=== PATIENT | male | born 1940 | race Caucasian/White ===

== ENCOUNTER 2016-08-22 13:18 | Inpatient (IN) | payer MEDICARE, OTHER ==
[2016-08-22] MEDS ORDERED: Albuterol/Ipratropium 3.0-0.5 MG/3 ML Neb Soln INH ONE (13:40)
[2016-08-22 14:13] LABS: CHLORIDE,CL 102 mEq/L (98-106); SODIUM,NA 140 mEq/L (136-145)
[2016-08-22] MEDS ORDERED: Temazepam 15 MG Cap PO PRN (14:21)
[2016-08-22] MEDS ORDERED: Acetaminophen 325 MG Tab PO PRN (14:21)
[2016-08-22] MEDS ORDERED: Lactated Ringers 1,000 ML IV SCH (14:30)
[2016-08-22] MEDS ORDERED: Levofloxacin/Dextrose 5%-Water 500 MG in Premix Bag 1 BAG IV ONE (14:30)
[2016-08-22] MEDS: Albuterol/Ipratropium 3.0-0.5 MG/3 ML Neb Soln NEB SCH ×2 (15:57→20:26)
[2016-08-22] MEDS: Furosemide 20 MG Tab PO SCH (15:57)
[2016-08-22] MEDS: metFORMIN 500 MG Tab PO SCH (17:34)
[2016-08-22] MEDS: Doxazosin 2 MG Tab PO SCH (20:14)
[2016-08-22] MEDS: Simvastatin 20 MG Tab PO SCH (20:14)
[2016-08-22] MEDS: [UNRECOGNIZED DRUG - OTHER] PO SCH (20:16)
[2016-08-22] MEDS: DABIGATRAN PO SCH (20:16)
[2016-08-23 07:46] LABS: CHLORIDE,CL 103 mEq/L (98-106); SODIUM,NA 142 mEq/L (136-145)
[2016-08-23] MEDS: Furosemide 20 MG Tab PO SCH ×2 (08:12→16:42)
[2016-08-23] MEDS: Enalapril 5 MG Tab PO SCH (08:12)
[2016-08-23] MEDS: metFORMIN 500 MG Tab PO SCH ×2 (08:12→16:42)
[2016-08-23] MEDS: Albuterol/Ipratropium 3.0-0.5 MG/3 ML Neb Soln NEB SCH ×4 (08:13→21:16)
[2016-08-23] MEDS: DABIGATRAN PO SCH ×2 (08:13→21:10)
[2016-08-23] MEDS: [UNRECOGNIZED DRUG - OTHER] PO SCH ×2 (08:13→21:10)
[2016-08-23] MEDS: methylPREDNISolone Sodium Succinate 125 MG/2 ML SDV IVPUSH SCH ×2 (11:10→21:12)
[2016-08-23] MEDS: Levofloxacin/Dextrose 5%-Water 500 MG in Premix Bag 1 BAG IV SCH (16:40)
[2016-08-23] MEDS: Cholecalciferol (Vitamin D3) 1,000 Unit Tab PO SCH (16:42)
[2016-08-23] MEDS: ACIDOPHILUS PO SCH (16:42)
[2016-08-23] MEDS: Doxazosin 2 MG Tab PO SCH (21:09)
[2016-08-23] MEDS: Simvastatin 20 MG Tab PO SCH (21:10)
--- NOTE | 2016-08-24 07:00 | PN ---
DATE: 08/23/2016 S: Mr. Wilder was admitted by Joe yesterday for COPD exacerbation and pneumonia, chest x-ray confirmed, white count was elevated. He has been running some fevers. Sputum and blood cultures are pending. His influenza screens were negative. The patient states that he feels better and feels like he is moving air with improvement and is not coughing as much. O: GENERAL: He is a pleasant, alert, and cooperative. HEENT: Benign. NECK: Veins are flat. LUNGS: Sounds are with inspiratory and expiratory wheezes, but overall pretty adequate air movement. There is some left lower lobe rhonchi and fine rales. CARDIAC: Tones are regular. ABDOMEN: Soft and nontender. No peripheral edema is seen. ASSESSMENT: PNEUMONIA WITH CHRONIC OBSTRUCTIVE PULMONARY DISEASE EXACERBATION. P: I am going to add some steroids to his regimen 62.5 Solu-Medrol twice a day, stop his IV fluids. Get him up and ambulating today and we will see how he does. JOE/PABLO /[id number]
[2016-08-24 07:43] LABS: CHLORIDE,CL 104 mEq/L (98-106); SODIUM,NA 141 mEq/L (136-145)
[2016-08-24] MEDS: Enalapril 5 MG Tab PO SCH (08:35)
[2016-08-24] MEDS: Cholecalciferol (Vitamin D3) 1,000 Unit Tab PO SCH (08:35)
[2016-08-24] MEDS: methylPREDNISolone Sodium Succinate 125 MG/2 ML SDV IVPUSH SCH ×2 (08:35→20:00)
[2016-08-24] MEDS: Furosemide 20 MG Tab PO SCH ×2 (08:35→17:15)
[2016-08-24] MEDS: metFORMIN 500 MG Tab PO SCH ×2 (08:35→17:15)
[2016-08-24] MEDS: DABIGATRAN PO SCH ×2 (08:36→20:04)
[2016-08-24] MEDS: [UNRECOGNIZED DRUG - OTHER] PO SCH ×2 (08:36→20:04)
[2016-08-24] MEDS: ACIDOPHILUS PO SCH (08:37)
[2016-08-24] MEDS: Albuterol/Ipratropium 3.0-0.5 MG/3 ML Neb Soln NEB SCH ×4 (10:16→20:12)
--- NOTE | 2016-08-24 10:42 | PN ---
DATE: 08/24/2016 S: The patient is doing well, has not spiked any temperatures. His blood pressure is controlled. We are going to try to wean him off his O2. Yesterday, we could not. Still coughs, but better. His lab work shows improvement in his white count and CRP. O: GENERAL: He is in his usual state. Pleasant and cooperative. HEENT: Grossly benign. NECK: Veins are flat. LUNGS: Sounds are markedly improved. Less rales in the left base, and wheezing is much better today than yesterday. ABDOMEN: Soft with good bowel sounds. No edema is seen. ASSESSMENT: PNEUMONIA. P: We will continue all current cares. Try to wean him off O2 today. I was hoping to get him home today, but I think it will be tomorrow. JOE/PABLO /[id number]
[2016-08-24] MEDS: Levofloxacin/Dextrose 5%-Water 500 MG in Premix Bag 1 BAG IV SCH (17:16)
[2016-08-24] MEDS: Doxazosin 2 MG Tab PO SCH (19:59)
[2016-08-24] MEDS: Simvastatin 20 MG Tab PO SCH (20:00)
[2016-08-25 08:04] LABS: CHLORIDE,CL 104 mEq/L (98-106); SODIUM,NA 139 mEq/L (136-145)
[2016-08-25 08:21] VITALS: BP 137/72
[2016-08-25] MEDS: methylPREDNISolone Sodium Succinate 125 MG/2 ML SDV IVPUSH SCH (08:34)
[2016-08-25] MEDS: [UNRECOGNIZED DRUG - OTHER] PO SCH (08:38)
[2016-08-25] MEDS: metFORMIN 500 MG Tab PO SCH (08:38)
[2016-08-25] MEDS: DABIGATRAN PO SCH (08:38)
[2016-08-25] MEDS: ACIDOPHILUS PO SCH (08:39)
[2016-08-25] MEDS: Enalapril 5 MG Tab PO SCH (08:39)
[2016-08-25] MEDS: Cholecalciferol (Vitamin D3) 1,000 Unit Tab PO SCH (08:39)
[2016-08-25] MEDS: Furosemide 20 MG Tab PO SCH (08:39)
[2016-08-25] MEDS: Albuterol/Ipratropium 3.0-0.5 MG/3 ML Neb Soln NEB SCH (08:40)
--- NOTE | 2016-08-28 07:21 | DISCH ---
ADMISSION DIAGNOSIS: Bronchopneumonia. DISCHARGE DIAGNOSIS: BRONCHOPNEUMONIA. HISTORY: The patient is a 76-year-old male, cared for by Joe Darrick. He was seen in our clinic for the cough, shortness of breath, and fevers. Chest x-ray appeared to show pneumonic infiltrate. He had an elevated white count to 18,000 with a CRP of 7. He was admitted for appropriate cares. HOSPITAL COURSE: The patient was started on IV Levaquin, DuoNeb, and treated appropriately over the course of his 3-day stay. His white count has come down. His CRP is down to 2.6. He has not spiked any temps. He was initially on 2 L of O2. He has been weaned off and is saturating in the mid 90s on room air. He is not having any pulmonary complications and has been up ambulating without any difficulty. He did have a positive sputum culture of Strep pneumonia sensitive to his Levaquin. He will be sent home on 7 more days of Levaquin and to follow up in the clinic in the next 2 weeks. COMPLICATIONS: During the stay were none. CONSULTATIONS: RT. DISPOSITION: Discharged home. JOE/PABLO /[id number]
== END 2016-08-25 10:05 | disposition home or self-care (01) | DRG 190 ==
LOC: CC.MS 13:18 → CC.FCMC 13:18 → UNDOADMIN 14:00 → CC.MS 14:00
PROVIDERS: ADMIT Physician Assistant Medical; ATTEND Family Medicine
DX: J44.0 Chronic obstructive pulmonary disease with (acute) lower respiratory infection (principal); J18.9 Pneumonia, unspecified organism; J44.1 Chronic obstructive pulmonary disease with (acute) exacerbation; R05 Cough; R06.02 Shortness of breath; Z96.659 Presence of unspecified artificial knee joint; Z96.649 Presence of unspecified artificial hip joint; Z79.899 Other long term (current) drug therapy; F17.200 Nicotine dependence, unspecified, uncomplicated; R50.9 Fever, unspecified
CPT/HCPCS: 36415; 71020; 80048; 80053; 85025; 86140; 87040; 87070; 87088; 87184; 87205; 87804; 94640; 94640-76; 94760; A9270-GY; J1956; J2930; J7120

== ENCOUNTER 2017-10-09 10:49 | Inpatient (IN) | payer MEDICARE, OTHER ==
[2017-10-09] MEDS ORDERED: Acetaminophen 325 MG Tab PO PRN (11:08)
[2017-10-09] MEDS ORDERED: Albuterol 0.083% 2.5 MG/3 ML Neb Soln NEB PRN (11:08)
[2017-10-09] MEDS ORDERED: Ondansetron 4 MG Tab.DIS PO PRN (11:08)
[2017-10-09 11:27] LABS: CHLORIDE,CL 103 mEq/L (98-106); SODIUM,NA 141 mEq/L (136-145)
[2017-10-09] MEDS ORDERED: Sodium Chloride 0.9% 1,000 ML IV SCH (11:30)
[2017-10-09] MEDS: cefTRIAXone 1 GM Vial IVPUSH SCH (11:38)
[2017-10-09] MEDS: Azithromycin 500 MG in Sodium Chloride 0.9% 250 ML IV SCH (11:39)
[2017-10-09] MEDS: Albuterol/Ipratropium 3.0-0.5 MG/3 ML Neb Soln NEB SCH ×2 (17:15→20:37)
[2017-10-10] MEDS: Albuterol/Ipratropium 3.0-0.5 MG/3 ML Neb Soln NEB SCH ×4 (07:38→20:10)
[2017-10-10] MEDS ORDERED: Ipratropium 0.02% 0.5 MG/2.5 ML Neb Soln INH PRN (08:22)
[2017-10-10] MEDS ORDERED: Enoxaparin 40 MG/0.4 ML Syringe SUBCUT SCH (08:30)
--- NOTE | 2017-10-10 08:48 | PCM.PN ---
- General Info Date of Service: 10/10/17 Admission Dx/Problem (Free Text): Pneumonia Functional Status: Reports: Tolerating Diet - Review of Systems General: Reports: Weakness, Fatigue, Malaise. Denies: Fever HEENT: Reports: No Symptoms Pulmonary: Reports: Cough, Sputum. Denies: Shortness of Breath Cardiovascular: Denies: Chest Pain, Edema, Lightheadedness Gastrointestinal: Denies: Abdominal Pain, Constipation, Decreased Appetite, Diarrhea, Nausea, Vomiting Genitourinary: Reports: No Symptoms Musculoskeletal: Reports: No Symptoms Skin: Reports: No Symptoms Neurological: Reports: No Symptoms - Patient Data Vitals - Most Recent: Last Vital Signs Temp 98.4 F 10/10/17 04:00 Pulse 55 L 10/10/17 04:00 Resp 20 10/10/17 04:00 BP 128/53 L 10/10/17 04:00 Pulse Ox 94 L 10/10/17 04:00 Weight - Most Recent: 298 lb 1.6 oz Lab Results Last 24 Hours: Laboratory Results - last 24 hr 10/09/17 10/09/17 10/09/17 Range/Units 10:53 10:53 11:08 WBC 14.6 H (5.0-10.0) 10^3/uL RBC 3.93 L (4.50-6.00) 10^6/uL Hgb 12.3 L (14.0-18.0) g/dL Hct 37.9 L (40.0-54.0) % MCV 96.4 H (82.0-94.0) fL MCH 31.3 (27.0-32.0) pg MCHC 32.5 L (33.0-38.0) g/dL RDW Coeff of Laurie 13.9 (11.0-15.0) % Plt Count 196 (150-400) 10^3/uL Neut % (Auto) 83.4 (35-85) % Lymph % (Auto) 6.6 L (10-55) % Kin[place] % (Auto) 9.3 (0-16) % Eos % (Auto) 0.5 (0-5) % Baso % (Auto) 0.2 (0-3) % Neut # (Auto) 12.15 H (1.80-7.00) 10^3/uL Lymph # (Auto) 0.96 L (1.00-4.80) 10^3/uL Kinney # (Auto) 1.36 H (0.00-0.80) 10^3/uL Eos # (Auto) 0.08 (0.00-0.45) 10^3/uL Baso # (Auto) 0.03 10^3/uL Sodium 141 (136-145) mEq/L Potassium 3.8 (3.5-5.0) mEq/L Chloride 103 (98-106) mEq/L Carbon Dioxide 29 (21-32) mmol/L BUN 12 (7-18) mg/dL Creatinine 0.8 (0.7-1.3) mg/dL Est Cr Clr Drug Dosing 87.05 mL/min Estimated GFR (MDRD) > 60 (>=60) mL/min Glucose 146 H (75-99) mg/dL POC Glucose (75-105) mg/dl Calcium 8.7 (8.4-10.1) mg/dL Total Bilirubin 0.9 (0.0-1.0) mg/dL AST 16 (15-37) U/L ALT 21 (12-78) U/L Alkaline Phosphatase 107 (46-116) U/L C-Reactive Protein 10.4 H (0.2-0.8) mg/dL Total Protein 6.8 (6.4-8.2) g/dL Albumin 3.0 L (3.4-5.0) g/dL Urine Color Dark yellow (YELLOW) Urine Appearance Clear (CLEAR) Urine pH 6.0 (4.5-8.0) Ur Specific [place] 1.020 (1.003-1.020) Urine Protein 100 H (NEGATIVE) mg/dL Urine Glucose (UA) 100 H (NEGATIVE) mg/dL Urine Ketones Negative (NEGATIVE) mg/dL Urine Occult Blood Negative (NEGATIVE) Urine Nitrite Negative (NEGATIVE) Urine Bilirubin Negative (NEGATIVE) Urine Urobilinogen >=8.0 H (0.2-1.0) EU/dL Ur Leukocyte Esterase Trace H (NEGATIVE) Urine RBC Not seen (0-5) /HPF Urine WBC 0-5 (0-5) /HPF Ur Squamous Epith Cells Few H (NOT SEEN) /HPF Urine Bacteria Few H (NOT SEEN) /HPF Urine Mucus Few H (NOT SEEN) /HPF 05/30/18 Range/Units 08:07 WBC (5.0-10.0) 10^3/uL RBC (4.50-6.00) 10^6/uL Hgb (14.0-18.0) g/dL Hct (40.0-54.0) % MCV (82.0-94.0) fL MCH (27.0-32.0) pg MCHC (33.0-38.0) g/dL RDW Coeff of Laurie (11.0-15.0) % Plt Count (150-400) 10^3/uL Neut % (Auto) (35-85) % Lymph % (Auto) (10-55) % [place] % (Auto) (0-16) % Eos % (Auto) (0-5) % Baso % (Auto) (0-3) % Neut # (Auto) (1.80-7.00) 10^3/uL Lymph # (Auto) (1.00-4.80) 10^3/uL Kinney # (Auto) (0.00-0.80) 10^3/uL Eos # (Auto) (0.00-0.45) 10^3/uL Baso # (Auto) 10^3/uL Sodium (136-145) mEq/L Potassium (3.5-5.0) mEq/L Chloride (98-106) mEq/L Carbon Dioxide (21-32) mmol/L BUN (7-18) mg/dL Creatinine (0.7-1.3) mg/dL Est Cr Clr Drug Dosing mL/min Estimated GFR (MDRD) (>=60) mL/min Glucose (75-99) mg/dL POC Glucose 149 H (75-105) mg/dl Calcium (8.4-10.1) mg/dL Total Bilirubin (0.0-1.0) mg/dL AST (15-37) U/L ALT (12-78) U/L Alkaline Phosphatase (46-116) U/L C-Reactive Protein (0.2-0.8) mg/dL Total Protein (6.4-8.2) g/dL Albumin (3.4-5.0) g/dL Urine Color (YELLOW) Urine Appearance (CLEAR) Urine pH (4.5-8.0) Ur Specific [place] (1.003-1.020) Urine Protein (NEGATIVE) mg/dL Urine Glucose (UA) (NEGATIVE) mg/dL Urine Ketones (NEGATIVE) mg/dL Urine Occult Blood (NEGATIVE) Urine Nitrite (NEGATIVE) Urine Bilirubin (NEGATIVE) Urine Urobilinogen (0.2-1.0) EU/dL Ur Leukocyte Esterase (NEGATIVE) Urine RBC (0-5) /HPF Urine WBC (0-5) /HPF Ur Squamous Epith Cells (NOT SEEN) /HPF Urine Bacteria (NOT SEEN) /HPF Urine Mucus (NOT SEEN) /HPF Presley Results Last 24 Hours: Microbiology 10/09/17 13:20 Influenza Type A Antigen Screen - Final Nasopharyngeal Swab NEGATIVE INFLUENZA A VIRUS AG Influenza Type B Antigen Screen - Final NEGATIVE INFLUENZA B VIRUS AG 10/09/17 11:08 Gram Stain - Final Sputum - Expectorated Med Orders - Current: Current Medications Acetaminophen (Tylenol) 650 mg PO Q4H PRN PRN Reason: Pain (Mild 1-3)/fever Last Admin: 10/09/17 14:21 Dose: 650 mg Albuterol (Proventil Neb Soln) 2.5 mg NEB Q2H PRN PRN Reason: Shortness Of Breath/wheezing Last Admin: 10/09/17 12:38 Dose: 2.5 mg Albuterol/Ipratropium (Duoneb 3.0-0.5 Mg/3 Ml) 3 ml NEB 0800,1200,1600,2000 [facility] Last Admin: 10/10/17 07:38 Dose: 3 ml Ceftriaxone Sodium (Rocephin) 1 gm IVPUSH DAILY@1200 [facility] Last Admin: 10/09/17 11:38 Dose: 1 gm Doxazosin Mesylate (Cardura) 2 mg PO BEDTIME [facility] Furosemide (Lasix) 20 mg PO BID [facility] Azithromycin 500 mg/ Sodium (Chloride) 250 mls @ 250 mls/hr IV DAILY@1200 [facility] Last Admin: 10/09/17 11:39 Dose: 250 mls/hr Non-Formulary Medication (Cholecalciferol (Vitamin D3)) 5,000 unit PO DAILY [facility] Non-Formulary Medication (Dabigatran Etexilate Mesylate) 150 mg PO BID [facility] Non-Formulary Medication (Enalapril Maleate [Enalapril Maleate]) 10 mg PO DAILY [facility] Non-Formulary Medication (Fluticasone Propionate [Fluticasone Propionate]) 2 spray NS DAILY PRN PRN Reason: Allergies Non-Formulary Medication (Ipratropium Hickman [Ipratropium Hickman]) 2 spray NS BID PRN PRN Reason: Allergies Non-Formulary Medication (Metformin Hcl [Metformin Hcl]) 500 mg PO BID [facility] Non-Formulary Medication (Pravastatin Sodium [Pravastatin Sodium]) 10 mg PO DAILY [facility] Ondansetron HCl (Zofran Odt) 8 mg PO Q6H PRN PRN Reason: nausea, able to take PO Temazepam (Restoril) 15 mg PO BEDTIME PRN PRN Reason: Sleep Discontinued Medications Enoxaparin Sodium (Lovenox) 40 mg SUBCUT Q24H [facility] Sodium Chloride (Normal Saline) 1,000 mls @ 50 mls/hr IV ASDIRECTED [facility] Last Admin: 10/09/17 11:41 Dose: 50 mls/hr - Exam General: Alert, Oriented HEENT: Mucous Membr. Moist/[place] Neck: Supple Lungs: Decreased Breath Sounds, Crackles (LLL) Cardiovascular: Irregular Rhythm GI/Abdominal Exam: Normal Bowel Sounds, Soft, Non-Tender Extremities: Normal Inspection, Normal Range of Motion, No Pedal Edema Skin: Warm, Dry Neurological: No New Focal Deficit - Problem List & Annotations (1) Pneumonia SNOMED Code(s): 732651344 Code(s): J18.9 - PNEUMONIA, UNSPECIFIED ORGANISM Status: Acute Priority: High Current Visit: Yes Qualifiers: Pneumonia type: due to unspecified organism Laterality: left Lung location: lower lobe of lung Qualified Code(s): J18.1 - Lobar pneumonia, unspecified organism - Problem List Review Problem List Initiated/Reviewed/Updated: Yes - My Orders Last 24 Hours: My Active Orders 10/10/17 08:22 Fluticasone Propionate [Fluticasone Propionate] 2 spray NS DAILY PRN Ipratropium Hickman [Ipratropium Hickman] 2 spray NS BID PRN 10/10/17 08:30 Cholecalciferol (Vitamin D3) 5,000 unit PO DAILY Dabigatran Etexilate Mesylate 150 mg PO BID Enalapril Maleate [Enalapril Maleate] 10 mg PO DAILY Furosemide [Lasix] 20 mg PO BID Pravastatin Sodium [Pravastatin Sodium] 10 mg PO DAILY metFORMIN HCl [Metformin HCl] 500 mg PO BID 10/10/17 20:00 Doxazosin [Cardura] 2 mg PO BEDTIME 10/11/17 05:11 BASIC METABOLIC PANEL,BMP [CHEM] AM C-REACTIVE PROTEIN [CHEM] AM CBC WITH AUTO DIFF [HEME] AM - Assessment Assessment:: LLL Pneumonia - Plan Plan:: Patient continues to have fatigue and malaise. Denies shortness of breath. Continues to have cough, minimal sputum production. Afebrile. No wheezing. Negative influenza. Labs show a WBC of 14.7 and CRP of 10.4 on admit. Will hold IV fluids. Encourage ambulation. Continue other cares including IV Levaquin. Possible discharge home tomorrow
[2017-10-10] MEDS ORDERED: Fluticasone Propionate Nasal Spray 16 GM Bottle NAS PRN (09:00)
[2017-10-10] MEDS: Cholecalciferol (Vitamin D3) 1,000 Unit Tab PO SCH (09:01)
[2017-10-10] MEDS: metFORMIN 500 MG Tab PO SCH ×2 (09:01→20:09)
[2017-10-10] MEDS: Simvastatin 10 MG Tab PO SCH (09:01)
[2017-10-10] MEDS: Furosemide 20 MG Tab PO SCH ×2 (09:01→16:50)
[2017-10-10] MEDS: Enalapril 5 MG Tab PO SCH (09:04)
[2017-10-10] MEDS: cefTRIAXone 1 GM Vial IVPUSH SCH (11:39)
[2017-10-10] MEDS: Azithromycin 500 MG in Sodium Chloride 0.9% 250 ML IV SCH (11:41)
[2017-10-10] MEDS: Doxazosin 2 MG Tab PO SCH (20:08)
[2017-10-10] MEDS: Apixaban 5 MG Tab PO SCH (20:09)
[2017-10-11 07:16] LABS: CHLORIDE,CL 102 mEq/L (98-106); SODIUM,NA 139 mEq/L (136-145)
[2017-10-11] MEDS: Enalapril 5 MG Tab PO SCH (07:23)
[2017-10-11] MEDS: metFORMIN 500 MG Tab PO SCH ×2 (07:23→19:46)
[2017-10-11] MEDS: Cholecalciferol (Vitamin D3) 1,000 Unit Tab PO SCH (07:23)
[2017-10-11] MEDS: Apixaban 5 MG Tab PO SCH ×2 (07:23→19:46)
[2017-10-11] MEDS: Simvastatin 10 MG Tab PO SCH (07:23)
[2017-10-11] MEDS: Furosemide 20 MG Tab PO SCH ×2 (07:23→16:11)
[2017-10-11] MEDS: Albuterol/Ipratropium 3.0-0.5 MG/3 ML Neb Soln NEB SCH ×4 (07:24→19:49)
[2017-10-11] MEDS: Fluconazole 100 MG Tab PO SCH (11:43)
[2017-10-11] MEDS: cefTRIAXone 1 GM Vial IVPUSH SCH (11:43)
[2017-10-11] MEDS: Azithromycin 500 MG in Sodium Chloride 0.9% 250 ML IV SCH (11:43)
--- NOTE | 2017-10-11 16:12 | PCM.PN ---
- General Info Date of Service: 10/11/17 Admission Dx/Problem (Free Text): Pneumonia Functional Status: Reports: Pain Controlled, Tolerating Diet, Ambulating - Review of Systems General: Reports: Weakness. Denies: Fever, Fatigue, Malaise HEENT: Reports: Ear Pain. Denies: Sinus Congestion, Sore Throat, Rhinitis Pulmonary: Reports: Cough, Sputum. Denies: Shortness of Breath Cardiovascular: Denies: Chest Pain, Edema, Lightheadedness Gastrointestinal: Denies: Abdominal Pain, Nausea, Vomiting Skin: Reports: No Symptoms Neurological: Reports: No Symptoms - Patient Data Vitals - Most Recent: Last Vital Signs Temp 97.7 F 10/11/17 12:00 Pulse 55 L 10/11/17 12:00 Resp 19 10/11/17 12:00 BP 143/58 H 10/11/17 12:00 Pulse Ox 93 L 10/11/17 12:00 Weight - Most Recent: 298 lb 1.6 oz Lab Results Last 24 Hours: Laboratory Results - last 24 hr 10/10/17 10/10/17 10/11/17 Range/Units 17:35 20:21 06:56 WBC 11.1 H (5.0-10.0) 10^3/uL RBC 3.67 L (4.50-6.00) 10^6/uL Hgb 11.4 L (14.0-18.0) g/dL Hct 35.8 L (40.0-54.0) % MCV 97.5 H (82.0-94.0) fL MCH 31.1 (27.0-32.0) pg MCHC 31.8 L (33.0-38.0) g/dL RDW Coeff of Laurie 13.7 (11.0-15.0) % Plt Count 168 (150-400) 10^3/uL Neut % (Auto) 82.8 (35-85) % Lymph % (Auto) 7.4 L (10-55) % [place] % (Auto) 8.2 (0-16) % Eos % (Auto) 1.4 (0-5) % Baso % (Auto) 0.2 (0-3) % Neut # (Auto) 9.16 H (1.80-7.00) 10^3/uL Lymph # (Auto) 0.82 L (1.00-4.80) 10^3/uL [place] # (Auto) 0.91 H (0.00-0.80) 10^3/uL Eos # (Auto) 0.15 (0.00-0.45) 10^3/uL Baso # (Auto) 0.02 10^3/uL Sodium (136-145) mEq/L Potassium (3.5-5.0) mEq/L Chloride (98-106) mEq/L Carbon Dioxide (21-32) mmol/L BUN (7-18) mg/dL Creatinine (0.7-1.3) mg/dL Est Cr Clr Drug Dosing mL/min Estimated GFR (MDRD) (>=60) mL/min Glucose (75-99) mg/dL POC Glucose 118 H 143 H (75-105) mg/dl Calcium (8.4-10.1) mg/dL C-Reactive Protein (0.2-0.8) mg/dL 10/11/17 10/11/17 Range/Units 06:56 07:39 WBC (5.0-10.0) 10^3/uL RBC (4.50-6.00) 10^6/uL Hgb (14.0-18.0) g/dL Hct (40.0-54.0) % MCV (82.0-94.0) fL MCH (27.0-32.0) pg MCHC (33.0-38.0) g/dL RDW Coeff of Laurie (11.0-15.0) % Plt Count (150-400) 10^3/uL Neut % (Auto) (35-85) % Lymph % (Auto) (10-55) % [place] % (Auto) (0-16) % Eos % (Auto) (0-5) % Baso % (Auto) (0-3) % Neut # (Auto) (1.80-7.00) 10^3/uL Lymph # (Auto) (1.00-4.80) 10^3/uL [place] # (Auto) (0.00-0.80) 10^3/uL Eos # (Auto) (0.00-0.45) 10^3/uL Baso # (Auto) 10^3/uL Sodium 139 (136-145) mEq/L Potassium 3.6 (3.5-5.0) mEq/L Chloride 102 (98-106) mEq/L Carbon Dioxide 27 (21-32) mmol/L BUN 11 (7-18) mg/dL Creatinine 0.7 (0.7-1.3) mg/dL Est Cr Clr Drug Dosing 99.49 mL/min Estimated GFR (MDRD) > 60 (>=60) mL/min Glucose 152 H (75-99) mg/dL POC Glucose 137 H (75-105) mg/dl Calcium 8.7 (8.4-10.1) mg/dL C-Reactive Protein 8.4 H (0.2-0.8) mg/dL Presley Results Last 24 Hours: Microbiology 10/09/17 10:57 Aerobic Blood Culture - Preliminary Blood - Venous - Lab Draw NO GROWTH AFTER 2 DAYS Anaerobic Blood Culture - Preliminary NO GROWTH AFTER 2 DAYS 10/09/17 10:53 Aerobic Blood Culture - Preliminary Blood - Venous NO GROWTH AFTER 2 DAYS Anaerobic Blood Culture - Preliminary NO GROWTH AFTER 2 DAYS 10/09/17 11:08 Gram Stain - Final Sputum - Expectorated Sputum Culture - Final Yeast Isolated Med Orders - Current: Current Medications Acetaminophen (Tylenol) 650 mg PO Q4H PRN PRN Reason: Pain (Mild 1-3)/fever Last Admin: 10/09/17 14:21 Dose: 650 mg Albuterol (Proventil Neb Soln) 2.5 mg NEB Q2H PRN PRN Reason: Shortness Of Breath/wheezing Last Admin: 10/09/17 12:38 Dose: 2.5 mg Albuterol/Ipratropium (Duoneb 3.0-0.5 Mg/3 Ml) 3 ml NEB 0800,1200,1600,2000 [facility] Last Admin: 10/11/17 11:43 Dose: 3 ml Apixaban (Eliquis) 5 mg PO BID [facility] Last Admin: 10/11/17 07:23 Dose: 5 mg Ceftriaxone Sodium (Rocephin) 1 gm IVPUSH DAILY@1200 [facility] Last Admin: 10/11/17 11:43 Dose: 1 gm Cholecalciferol (Vitamin D3) 5,000 units PO DAILY [facility] Last Admin: 10/11/17 07:23 Dose: 5,000 units Doxazosin Mesylate (Cardura) 2 mg PO BEDTIME [facility] Last Admin: 10/10/17 20:08 Dose: 2 mg Enalapril Maleate (Vasotec) 10 mg PO DAILY [facility] Last Admin: 10/11/17 07:23 Dose: 10 mg Fluconazole (Diflucan) 100 mg PO DAILY [facility] Last Admin: 10/11/17 11:43 Dose: 100 mg Fluticasone Propionate (Flonase) 0 gm BILL DAILY PRN PRN Reason: Allergies Furosemide (Lasix) 20 mg PO BID@0800,1600 [facility] Last Admin: 10/11/17 07:23 Dose: 20 mg Azithromycin 500 mg/ Sodium (Chloride) 250 mls @ 250 mls/hr IV DAILY@1200 [facility] Last Admin: 10/11/17 11:43 Dose: 250 mls/hr Ipratropium Cummings (Atrovent) 0.5 mg INH BID PRN PRN Reason: Allergies Metformin HCl (Glucophage) 500 mg PO BID [facility] Last Admin: 10/11/17 07:23 Dose: 500 mg Ondansetron HCl (Zofran Odt) 8 mg PO Q6H PRN PRN Reason: nausea, able to take PO Simvastatin (Zocor) 5 mg PO DAILY [facility] Last Admin: 10/11/17 07:23 Dose: 5 mg Temazepam (Restoril) 15 mg PO BEDTIME PRN PRN Reason: Sleep Discontinued Medications Enoxaparin Sodium (Lovenox) 40 mg SUBCUT Q24H [facility] Sodium Chloride (Normal Saline) 1,000 mls @ 50 mls/hr IV ASDIRECTED [facility] Last Admin: 10/09/17 11:41 Dose: 50 mls/hr - Exam General: Alert, Oriented HEENT: Mucous Membr. Moist/[place], Other (ear canals are clear, No erythema noted to TMs) Neck: Supple Lungs: Decreased Breath Sounds, Crackles (LLL) Cardiovascular: Regular Rate, Regular Rhythm GI/Abdominal Exam: Normal Bowel Sounds, Soft, Non-Tender Extremities: Normal Inspection, No Pedal Edema Skin: Warm, Dry Neurological: No New Focal Deficit - Problem List & Annotations (1) Pneumonia SNOMED Code(s): 204938351 Code(s): J18.9 - PNEUMONIA, UNSPECIFIED ORGANISM Status: Acute Priority: High Current Visit: Yes Qualifiers: Pneumonia type: due to unspecified organism Laterality: left Lung location: lower lobe of lung Qualified Code(s): J18.1 - Lobar pneumonia, unspecified organism - Problem List Review Problem List Initiated/Reviewed/Updated: Yes - My Orders Last 24 Hours: My Active Orders 10/10/17 20:00 Apixaban [Eliquis] 5 mg PO BID Doxazosin [Cardura] 2 mg PO BEDTIME 10/11/17 11:15 Fluconazole [Diflucan] 100 mg PO DAILY 10/12/17 05:11 BASIC METABOLIC PANEL,BMP [CHEM] AM C-REACTIVE PROTEIN [CHEM] AM - Assessment Assessment:: LLL Pneumonia - Plan Plan:: Patient continues to have fatigue and malaise. Denies shortness of breath. Continues to have cough, minimal sputum production. Afebrile. No wheezing. Negative influenza. Labs show a WBC of 14.7 and CRP of 10.4 on admit. Will hold IV fluids. Encourage ambulation. Continue other cares including IV Levaquin. Possible discharge home tomorrow 10-11-2017 Patient feeling better today, was able to get some rest last night. Does continue to have occasional cough, minimal sputum production. Afebrile. No wheezing. States does still feel fatigued. Having left ear pain now. Labs show improvement of WBC to 11.1, CRP 8.4. Sputum culture does show yeast. Will continue with current meds. Start Diflucan daily for yeast. Repeat labs in am. Start cough medicine. Possible discharge home tomorrow.
[2017-10-11] MEDS: Doxazosin 2 MG Tab PO SCH (19:46)
[2017-10-12] MEDS: Temazepam 15 MG Cap PO PRN (00:05)
[2017-10-12] MEDS: Fluconazole 100 MG Tab PO SCH (07:33)
[2017-10-12] MEDS: Simvastatin 10 MG Tab PO SCH (07:33)
[2017-10-12] MEDS: Albuterol/Ipratropium 3.0-0.5 MG/3 ML Neb Soln NEB SCH ×4 (07:33→19:53)
[2017-10-12] MEDS: Enalapril 5 MG Tab PO SCH (07:34)
[2017-10-12] MEDS: Cholecalciferol (Vitamin D3) 1,000 Unit Tab PO SCH (07:34)
[2017-10-12] MEDS: metFORMIN 500 MG Tab PO SCH ×2 (07:35→19:53)
[2017-10-12] MEDS: Apixaban 5 MG Tab PO SCH ×2 (07:35→19:53)
[2017-10-12] MEDS: Furosemide 20 MG Tab PO SCH ×2 (07:35→16:47)
[2017-10-12 07:41] LABS: CHLORIDE,CL 104 mEq/L (98-106); SODIUM,NA 141 mEq/L (136-145)
--- NOTE | 2017-10-12 09:13 | PCM.PN ---
- General Info Date of Service: 10/12/17 Admission Dx/Problem (Free Text): Pneumonia Functional Status: Reports: Pain Controlled, Tolerating Diet. Denies: Ambulating - Review of Systems General: Denies: Fever, Weakness, Fatigue, Malaise HEENT: Reports: No Symptoms Pulmonary: Reports: Cough, Sputum. Denies: Shortness of Breath Cardiovascular: Denies: Chest Pain, Edema, Lightheadedness Gastrointestinal: Denies: Abdominal Pain, Nausea, Vomiting Genitourinary: Reports: No Symptoms Musculoskeletal: Reports: No Symptoms Skin: Reports: No Symptoms Neurological: Reports: No Symptoms - Patient Data Vitals - Most Recent: Last Vital Signs Temp 97.7 F 10/12/17 07:31 Pulse 70 10/12/17 07:31 Resp 20 10/12/17 07:31 BP 150/56 H 10/12/17 07:31 Pulse Ox 92 L 10/12/17 07:31 Weight - Most Recent: 298 lb 1.6 oz Lab Results Last 24 Hours: Laboratory Results - last 24 hr 10/11/17 10/11/17 10/11/17 Range/Units 11:53 17:28 20:10 Sodium (136-145) mEq/L Potassium (3.5-5.0) mEq/L Chloride (98-106) mEq/L Carbon Dioxide (21-32) mmol/L BUN (7-18) mg/dL Creatinine (0.7-1.3) mg/dL Est Cr Clr Drug Dosing mL/min Estimated GFR (MDRD) (>=60) mL/min Glucose (75-99) mg/dL POC Glucose 104 125 H 147 H (75-105) mg/dl Calcium (8.4-10.1) mg/dL C-Reactive Protein (0.2-0.8) mg/dL 10/12/17 10/12/17 Range/Units 07:05 07:29 Sodium 141 (136-145) mEq/L Potassium 3.7 (3.5-5.0) mEq/L Chloride 104 (98-106) mEq/L Carbon Dioxide 29 (21-32) mmol/L BUN 8 (7-18) mg/dL Creatinine 0.7 (0.7-1.3) mg/dL Est Cr Clr Drug Dosing 99.49 mL/min Estimated GFR (MDRD) > 60 (>=60) mL/min Glucose 141 H (75-99) mg/dL POC Glucose 131 H (75-105) mg/dl Calcium 9.0 (8.4-10.1) mg/dL C-Reactive Protein 4.8 H (0.2-0.8) mg/dL [facility] Results Last 24 Hours: Microbiology 10/09/17 10:57 Aerobic Blood Culture - Preliminary Blood - Venous - Lab Draw NO GROWTH AFTER 2 DAYS Anaerobic Blood Culture - Preliminary NO GROWTH AFTER 2 DAYS 10/09/17 10:53 Aerobic Blood Culture - Preliminary Blood - Venous NO GROWTH AFTER 2 DAYS Anaerobic Blood Culture - Preliminary NO GROWTH AFTER 2 DAYS 10/09/17 11:08 Gram Stain - Final Sputum - Expectorated Sputum Culture - Final Yeast Isolated Med Orders - Current: Current Medications Acetaminophen (Tylenol) 650 mg PO Q4H PRN PRN Reason: Pain (Mild 1-3)/fever Last Admin: 10/09/17 14:21 Dose: 650 mg Albuterol (Proventil Neb Soln) 2.5 mg NEB Q2H PRN PRN Reason: Shortness Of Breath/wheezing Last Admin: 10/09/17 12:38 Dose: 2.5 mg Albuterol/Ipratropium (Duoneb 3.0-0.5 Mg/3 Ml) 3 ml NEB 0800,1200,1600,2000 [facility] Last Admin: 10/12/17 07:33 Dose: 3 ml Apixaban (Eliquis) 5 mg PO BID [facility] Last Admin: 10/12/17 07:35 Dose: 5 mg Ceftriaxone Sodium (Rocephin) 1 gm IVPUSH DAILY@1200 [facility] Last Admin: 10/11/17 11:43 Dose: 1 gm Cholecalciferol (Vitamin D3) 5,000 units PO DAILY [facility] Last Admin: 10/12/17 07:34 Dose: 5,000 units Doxazosin Mesylate (Cardura) 2 mg PO BEDTIME [facility] Last Admin: 10/11/17 19:46 Dose: 2 mg Enalapril Maleate (Vasotec) 10 mg PO DAILY [facility] Last Admin: 10/12/17 07:34 Dose: 10 mg Fluconazole (Diflucan) 100 mg PO DAILY [facility] Last Admin: 10/12/17 07:33 Dose: 100 mg Fluticasone Propionate (Flonase) 0 gm BILL DAILY PRN PRN Reason: Allergies Furosemide (Lasix) 20 mg PO BID@0800,1600 [facility] Last Admin: 10/12/17 07:35 Dose: 20 mg Azithromycin 500 mg/ Sodium (Chloride) 250 mls @ 250 mls/hr IV DAILY@1200 [facility] Last Admin: 10/11/17 11:43 Dose: 250 mls/hr Ipratropium [place] (Atrovent) 0.5 mg INH BID PRN PRN Reason: Allergies Metformin HCl (Glucophage) 500 mg PO BID [facility] Last Admin: 10/12/17 07:35 Dose: 500 mg Ondansetron HCl (Zofran Odt) 8 mg PO Q6H PRN PRN Reason: nausea, able to take PO Simvastatin (Zocor) 5 mg PO DAILY [facility] Last Admin: 10/12/17 07:33 Dose: 5 mg Temazepam (Restoril) 15 mg PO BEDTIME PRN PRN Reason: Sleep Last Admin: 10/12/17 00:05 Dose: 15 mg Discontinued Medications Enoxaparin Sodium (Lovenox) 40 mg SUBCUT Q24H [facility] Sodium Chloride (Normal Saline) 1,000 mls @ 50 mls/hr IV ASDIRECTED [facility] Last Admin: 10/09/17 11:41 Dose: 50 mls/hr - Exam Quality Assessment: Supplemental Oxygen General: Alert, Oriented HEENT: Mucous Membr. Moist/[place] Neck: Supple Lungs: Crackles (LLL) Cardiovascular: Regular Rate, Regular Rhythm GI/Abdominal Exam: Normal Bowel Sounds, Soft, Non-Tender Extremities: Normal Inspection, No Pedal Edema Skin: Warm, Dry Neurological: No New Focal Deficit - Problem List & Annotations (1) Pneumonia SNOMED Code(s): 008472387 Code(s): J18.9 - PNEUMONIA, UNSPECIFIED ORGANISM Status: Acute Priority: High Current Visit: Yes Qualifiers: Pneumonia type: due to unspecified organism Laterality: left Lung location: lower lobe of lung Qualified Code(s): J18.1 - Lobar pneumonia, unspecified organism - Problem List Review Problem List Initiated/Reviewed/Updated: Yes - My Orders Last 24 Hours: My Active Orders 10/11/17 11:15 Fluconazole [Diflucan] 100 mg PO DAILY - Assessment Assessment:: LLL Pneumonia - Plan Plan:: Patient continues to have fatigue and malaise. Denies shortness of breath. Continues to have cough, minimal sputum production. Afebrile. No wheezing. Negative influenza. Labs show a WBC of 14.7 and CRP of 10.4 on admit. Will hold IV fluids. Encourage ambulation. Continue other cares including IV Levaquin. Possible discharge home tomorrow 10-11-2017 Patient feeling better today, was able to get some rest last night. Does continue to have occasional cough, minimal sputum production. Afebrile. No wheezing. States does still feel fatigued. Having left ear pain now. Labs show improvement of WBC to 11.1, CRP 8.4. Sputum culture does show yeast. Will continue with current meds. Start Diflucan daily for yeast. Repeat labs in am. Start cough medicine. Possible discharge home tomorrow. 10-12-2017 Patient is feeling good today. States cough medicine has helped him to suppress cough and get some sleep. Still oxygen dependent. Did try to wean him yesterday but his sats dropped to 88%. Afebrile. Is tolerating ambulating with minimal shortness of breath. Lung sounds still note He was noted to have yeast in his sputum so Diflucan was added. Labs continue to improve. WBC normal. CRP down to 4.8. Encourage ambulation and attempt to wean off oxygen again today in hopes to discharge home tomorrow without oxygen.
[2017-10-12] MEDS: Azithromycin 500 MG in Sodium Chloride 0.9% 250 ML IV SCH (11:48)
[2017-10-12] MEDS: cefTRIAXone 1 GM Vial IVPUSH SCH (11:48)
[2017-10-12] MEDS: Doxazosin 2 MG Tab PO SCH (19:53)
[2017-10-13] MEDS: Temazepam 15 MG Cap PO PRN ×2 (02:34→23:18)
[2017-10-13] MEDS: Fluconazole 100 MG Tab PO SCH (07:30)
[2017-10-13] MEDS: Furosemide 20 MG Tab PO SCH ×2 (07:30→15:34)
[2017-10-13] MEDS: Enalapril 5 MG Tab PO SCH (07:30)
[2017-10-13] MEDS: Simvastatin 10 MG Tab PO SCH (07:30)
[2017-10-13] MEDS: metFORMIN 500 MG Tab PO SCH ×2 (07:31→19:49)
[2017-10-13] MEDS: Apixaban 5 MG Tab PO SCH ×2 (07:31→19:34)
[2017-10-13] MEDS: Cholecalciferol (Vitamin D3) 1,000 Unit Tab PO SCH (07:32)
[2017-10-13] MEDS: Albuterol/Ipratropium 3.0-0.5 MG/3 ML Neb Soln NEB SCH ×4 (07:38→19:34)
[2017-10-13 08:31] LABS: CHLORIDE,CL 103 mEq/L (98-106); SODIUM,NA 141 mEq/L (136-145)
[2017-10-13] MEDS: cefTRIAXone 1 GM Vial IVPUSH SCH (11:40)
[2017-10-13] MEDS: Azithromycin 500 MG in Sodium Chloride 0.9% 250 ML IV SCH (11:42)
--- NOTE | 2017-10-13 14:45 | PCM.PN ---
- General Info Date of Service: 10/13/17 Admission Dx/Problem (Free Text): Pneumonia Subjective Update: Pt. reports he still has a productive cough and coughing up phlegm occasionally. Denies any SOB and states that he has not been able to lay flat in bed since early . Pt. has smoked for 60 years. Has never been on home oxygen. Is anxious to go home. Functional Status: Reports: Pain Controlled, Tolerating Diet, Ambulating, Urinating, Incentive Spirometry Pain Score: 0 - Review of Systems General: Reports: No Symptoms HEENT: Reports: No Symptoms Pulmonary: Reports: Cough, Sputum Cardiovascular: Reports: Orthopnea Gastrointestinal: Reports: No Symptoms Genitourinary: Reports: No Symptoms Musculoskeletal: Reports: No Symptoms Skin: Reports: No Symptoms Neurological: Reports: No Symptoms Psychiatric: Reports: No Symptoms - Patient Data Vitals - Most Recent: Last Vital Signs Temp 36.5 C 10/13/17 11:50 Pulse 64 10/13/17 11:50 Resp 20 10/13/17 11:50 BP 142/54 H 10/13/17 11:50 Pulse Ox 90 L 10/13/17 11:50 Weight - Most Recent: 135.216 kg Lab Results Last 24 Hours: Laboratory Results - last 24 hr 10/12/17 10/12/17 10/12/17 Range/Units 11:29 17:09 20:51 WBC (5.0-10.0) 10^3/uL RBC (4.50-6.00) 10^6/uL Hgb (14.0-18.0) g/dL Hct (40.0-54.0) % MCV (82.0-94.0) fL MCH (27.0-32.0) pg MCHC (33.0-38.0) g/dL RDW Coeff of Laurie (11.0-15.0) % Plt Count (150-400) 10^3/uL Neut % (Auto) (35-85) % Lymph % (Auto) (10-55) % [place] % (Auto) (0-16) % Eos % (Auto) (0-5) % Baso % (Auto) (0-3) % Neut # (Auto) (1.80-7.00) 10^3/uL Lymph # (Auto) (1.00-4.80) 10^3/uL [place] # (Auto) (0.00-0.80) 10^3/uL Eos # (Auto) (0.00-0.45) 10^3/uL Baso # (Auto) 10^3/uL Sodium (136-145) mEq/L Potassium (3.5-5.0) mEq/L Chloride (98-106) mEq/L Carbon Dioxide (21-32) mmol/L BUN (7-18) mg/dL Creatinine (0.7-1.3) mg/dL Est Cr Clr Drug Dosing mL/min Estimated GFR (MDRD) (>=60) mL/min Glucose (75-99) mg/dL POC Glucose 103 106 H 161 H (75-105) mg/dl Calcium (8.4-10.1) mg/dL 10/13/17 10/13/17 10/13/17 Range/Units 07:17 08:00 08:00 WBC 9.0 (5.0-10.0) 10^3/uL RBC 3.82 L (4.50-6.00) 10^6/uL Hgb 11.9 L (14.0-18.0) g/dL Hct 37.2 L (40.0-54.0) % MCV 97.4 H (82.0-94.0) fL MCH 31.2 (27.0-32.0) pg MCHC 32.0 L (33.0-38.0) g/dL RDW Coeff of Laurie 13.6 (11.0-15.0) % Plt Count 209 (150-400) 10^3/uL Neut % (Auto) 75.4 (35-85) % Lymph % (Auto) 13.6 (10-55) % [place] % (Auto) 8.2 (0-16) % Eos % (Auto) 2.5 (0-5) % Baso % (Auto) 0.3 (0-3) % Neut # (Auto) 6.80 (1.80-7.00) 10^3/uL Lymph # (Auto) 1.23 (1.00-4.80) 10^3/uL [place] # (Auto) 0.74 (0.00-0.80) 10^3/uL Eos # (Auto) 0.23 (0.00-0.45) 10^3/uL Baso # (Auto) 0.03 10^3/uL Sodium 141 (136-145) mEq/L Potassium 3.8 (3.5-5.0) mEq/L Chloride 103 (98-106) mEq/L Carbon Dioxide 33 H (21-32) mmol/L BUN 7 (7-18) mg/dL Creatinine 0.7 (0.7-1.3) mg/dL Est Cr Clr Drug Dosing 99.49 mL/min Estimated GFR (MDRD) > 60 (>=60) mL/min Glucose 135 H (75-99) mg/dL POC Glucose 113 H (75-105) mg/dl Calcium 9.0 (8.4-10.1) mg/dL 10/13/17 Range/Units 11:27 WBC (5.0-10.0) 10^3/uL RBC (4.50-6.00) 10^6/uL Hgb (14.0-18.0) g/dL Hct (40.0-54.0) % MCV (82.0-94.0) fL MCH (27.0-32.0) pg MCHC (33.0-38.0) g/dL RDW Coeff of [place]ie (11.0-15.0) % Plt Count (150-400) 10^3/uL Neut % (Auto) (35-85) % Lymph % (Auto) (10-55) % [place] % (Auto) (0-16) % Eos % (Auto) (0-5) % Baso % (Auto) (0-3) % Neut # (Auto) (1.80-7.00) 10^3/uL Lymph # (Auto) (1.00-4.80) 10^3/uL [place] # (Auto) (0.00-0.80) 10^3/uL Eos # (Auto) (0.00-0.45) 10^3/uL Baso # (Auto) 10^3/uL Sodium (136-145) mEq/L Potassium (3.5-5.0) mEq/L Chloride (98-106) mEq/L Carbon Dioxide (21-32) mmol/L BUN (7-18) mg/dL Creatinine (0.7-1.3) mg/dL Est Cr Clr Drug Dosing mL/min Estimated GFR (MDRD) (>=60) mL/min Glucose (75-99) mg/dL POC Glucose 101 (75-105) mg/dl Calcium (8.4-10.1) mg/dL [place] Results Last 24 Hours: Microbiology 10/09/17 10:57 Aerobic Blood Culture - Preliminary Blood - Venous - Lab Draw NO GROWTH AFTER 4 DAYS Anaerobic Blood Culture - Preliminary NO GROWTH AFTER 4 DAYS 10/09/17 10:53 Aerobic Blood Culture - Preliminary Blood - Venous NO GROWTH AFTER 4 DAYS Anaerobic Blood Culture - Preliminary NO GROWTH AFTER 4 DAYS Med Orders - Current: Current Medications Acetaminophen (Tylenol) 650 mg PO Q4H PRN PRN Reason: Pain (Mild 1-3)/fever Last Admin: 10/09/17 14:21 Dose: 650 mg Albuterol (Proventil Neb Soln) 2.5 mg NEB Q2H PRN PRN Reason: Shortness Of Breath/wheezing Last Admin: 10/09/17 12:38 Dose: 2.5 mg Albuterol/Ipratropium (Duoneb 3.0-0.5 Mg/3 Ml) 3 ml NEB 0800,1200,1600,2000 [facility] Last Admin: 10/13/17 11:39 Dose: 3 ml Apixaban (Eliquis) 5 mg PO BID [facility] Last Admin: 10/13/17 07:31 Dose: 5 mg Cholecalciferol (Vitamin D3) 5,000 units PO DAILY [facility] Last Admin: 10/13/17 07:32 Dose: 5,000 units Doxazosin Mesylate (Cardura) 2 mg PO BEDTIME [facility] Last Admin: 10/12/17 19:53 Dose: 2 mg Enalapril Maleate (Vasotec) 10 mg PO DAILY [facility] Last Admin: 10/13/17 07:30 Dose: 10 mg Fluconazole (Diflucan) 100 mg PO DAILY [facility] Last Admin: 10/13/17 07:30 Dose: 100 mg Fluticasone Propionate (Flonase) 0 gm BILL DAILY PRN PRN Reason: Allergies Furosemide (Lasix) 20 mg PO BID@0800,1600 [facility] Last Admin: 10/13/17 07:30 Dose: 20 mg Ipratropium [place] (Atrovent) 0.5 mg INH BID PRN PRN Reason: Allergies Levofloxacin (Levaquin) 750 mg PO Q24H [facility] Metformin HCl (Glucophage) 500 mg PO BID [facility] Last Admin: 10/13/17 07:31 Dose: 500 mg Ondansetron HCl (Zofran Odt) 8 mg PO Q6H PRN PRN Reason: nausea, able to take PO Simvastatin (Zocor) 5 mg PO DAILY [facility] Last Admin: 10/13/17 07:30 Dose: 5 mg Temazepam (Restoril) 15 mg PO BEDTIME PRN PRN Reason: Sleep Last Admin: 10/13/17 02:34 Dose: 15 mg Discontinued Medications Ceftriaxone Sodium (Rocephin) 1 gm IVPUSH DAILY@1200 [facility] Last Admin: 10/13/17 11:40 Dose: 1 gm Enoxaparin Sodium (Lovenox) 40 mg SUBCUT Q24H [facility] Azithromycin 500 mg/ Sodium (Chloride) 250 mls @ 250 mls/hr IV DAILY@1200 [facility] Last Admin: 10/13/17 11:42 Dose: 250 mls/hr Sodium Chloride (Normal Saline) 1,000 mls @ 50 mls/hr IV ASDIRECTED [facility] Last Admin: 10/09/17 11:41 Dose: 50 mls/hr - Exam Quality Assessment: Supplemental Oxygen General: Alert, Oriented, Cooperative, No Acute Distress HEENT: Pupils Equal, Pupils Reactive, EOMI, Mucous Membr. Moist/[place] Neck: Supple, Trachea Midline, No JVD Lungs: Decreased Breath Sounds, Rhonchi, Wheezing Cardiovascular: Regular Rate, Regular Rhythm GI/Abdominal Exam: Normal Bowel Sounds, Soft, Non-Tender, No Organomegaly, No Distention Extremities: Normal Inspection, Normal Range of Motion, Non-Tender, No Pedal Edema Skin: Warm, Dry, Intact Neurological: No New Focal Deficit, Normal Gait, Normal Speech Psy/Mental Status: Alert, Normal Affect, Normal Mood - Problem List & Annotations (1) COPD exacerbation SNOMED Code(s): 345327785 Code(s): J44.1 - CHRONIC OBSTRUCTIVE PULMONARY DISEASE W (ACUTE) EXACERBATION Status: Acute Priority: Medium Current Visit: Yes (2) Pneumonia SNOMED Code(s): 816277150 Code(s): J18.9 - PNEUMONIA, UNSPECIFIED ORGANISM Status: Acute Priority: High Current Visit: Yes Qualifiers: Pneumonia type: due to unspecified organism Laterality: left Lung location: lower lobe of lung Qualified Code(s): J18.1 - Lobar pneumonia, unspecified organism - Problem List Review Problem List Initiated/Reviewed/Updated: Yes - My Orders Last 24 Hours: My Active Orders 10/13/17 14:45 Levofloxacin [Levaquin] 750 mg PO Q24H methylPREDNISolone Sod Succ [Solu-MEDROL] 125 mg IVPUSH Q24H - Assessment Assessment:: LLL Pneumonia - Plan Plan:: Patient continues to have fatigue and malaise. Denies shortness of breath. Continues to have cough, minimal sputum production. Afebrile. No wheezing. Negative influenza. Labs show a WBC of 14.7 and CRP of 10.4 on admit. Will hold IV fluids. Encourage ambulation. Continue other cares including IV Levaquin. Possible discharge home tomorrow 10-11-2017 Patient feeling better today, was able to get some rest last night. Does continue to have occasional cough, minimal sputum production. Afebrile. No wheezing. States does still feel fatigued. Having left ear pain now. Labs show improvement of WBC to 11.1, CRP 8.4. Sputum culture does show yeast. Will continue with current meds. Start Diflucan daily for yeast. Repeat labs in am. Start cough medicine. Possible discharge home tomorrow. 10-12-2017 Patient is feeling good today. States cough medicine has helped him to suppress cough and get some sleep. Still oxygen dependent. Did try to wean him yesterday but his sats dropped to 88%. Afebrile. Is tolerating ambulating with minimal shortness of breath. Lung sounds still note He was noted to have yeast in his sputum so Diflucan was added. Labs continue to improve. WBC normal. CRP down to 4.8. Encourage ambulation and attempt to wean off oxygen again today in hopes to discharge home tomorrow without oxygen. 10-13-2017 Patient feeling good today. Still with productive cough. Attempting to wean oxygen, however sats drop to 89% while ambulating. Afebrile. Is tolerating ambulation with sats 89%. Lung sounds rhonchi bilat. posterior lower lungs with occassional wheeze. Discontinue Rocephin and Azithromycin and start oral Levaquin 750 mg daily. COPD exacerbation- give Solumedrol 125 mg IV and continue Duonebs q 6 hrs and PRN. Continue to attempt wean oxygen and monitor sats.Will probably need outpatient Pulmonology consult and possible home oxygen.
[2017-10-13] MEDS ORDERED: Levofloxacin 500 MG Tab PO SCH (15:00)
[2017-10-13] MEDS ORDERED: methylPREDNISolone Sodium Succinate 125 MG/2 ML SDV IVPUSH SCH (15:00)
[2017-10-13] MEDS: Doxazosin 2 MG Tab PO SCH (19:34)
[2017-10-14 07:22] VITALS: BP 151/64
[2017-10-14] MEDS: metFORMIN 500 MG Tab PO SCH (07:37)
[2017-10-14] MEDS: Cholecalciferol (Vitamin D3) 1,000 Unit Tab PO SCH (07:37)
[2017-10-14] MEDS: Furosemide 20 MG Tab PO SCH (07:38)
[2017-10-14] MEDS: Fluconazole 100 MG Tab PO SCH (07:38)
[2017-10-14] MEDS: Enalapril 5 MG Tab PO SCH (07:38)
[2017-10-14] MEDS: Albuterol/Ipratropium 3.0-0.5 MG/3 ML Neb Soln NEB SCH (07:39)
[2017-10-14] MEDS: Apixaban 5 MG Tab PO SCH (07:39)
[2017-10-14] MEDS: Simvastatin 10 MG Tab PO SCH (07:39)
[2017-10-14] MEDS ORDERED: Levofloxacin 500 MG Tab PO ONE (08:48)
[2017-10-14] MEDS ORDERED: methylPREDNISolone Sodium Succinate 125 MG/2 ML SDV IVPUSH SCH (09:00)
--- NOTE | 2017-10-14 11:24 | PCM.DCSUM1 ---
Discharge Summary - Hospital Course HPI Initial Comments: 77 year male with past medical history of HTN, COPD, smoker, HL, and DM, initially seen in clinic, then referred for admission due to productive cough, malaise, and elevated WBC count and CXR showed left lower lobe pneumonia. - Discharge Data Discharge Date: 10/14/17 Discharge Disposition: Home, Self-Care 01 Condition: Good - Discharge Diagnosis/Problem(s) (1) COPD exacerbation SNOMED Code(s): 228837661 ICD Code: J44.1 - CHRONIC OBSTRUCTIVE PULMONARY DISEASE W (ACUTE) EXACERBATION Status: Acute Priority: Medium (2) Pneumonia SNOMED Code(s): 888659801 ICD Code: J18.9 - PNEUMONIA, UNSPECIFIED ORGANISM Status: Acute Priority : High Qualifiers: Pneumonia type: due to unspecified organism Laterality: left Lung location: lower lobe of lung Qualified Code(s): J18.1 - Lobar pneumonia, unspecified organism - Patient Summary/Data Consults: Consultations 10/09/17 11:08 Respiratory Care Assess and Treatment [CONS] Routine Hospital Course: 77 year male with past medical history of HTN, DM, HL, smoker, and COPD, referred for admission to hospital after being seen in clinic for productive cough, fatigue, leukocytosis, and left lower lobe pneumonia on CXR. Patient was started on IV Rocephin, Azithromycin, and Duonebs q 6 hrs and PRN. WBC count trended downward and normalized. Patient had occassional diffuse wheezing on 10/13/2017 and was started on IV Solumedrol for COPD exacerbation. Patient did require oxygen during hospitalization and was weaned off gradually, and maintained sats >90%, however continued to drop sats with ambulation to 89% . This was discussed with patient whom states this may have been ongoing for a long time, states that he is unable to lay flat due to increased SOB for years. Sats did improve during hospital course ranging from 92-95% on room air but dropped to 89% during ambulation. Discussed with patient that he will need to be seen by Dr. Pereira on Sunday and discuss home oxygen and Pulmonology consult. - Patient Instructions Diet: Diabetic Diet Activity: As Tolerated Driving: May Drive Today Notify Provider of: Fever - Discharge Plan Prescriptions/Med Rec: Levofloxacin [Levaquin] 750 mg PO DAILY #4 tab predniSONE [Prednisone] 40 mg PO DAILY #5 tablet Home Medications: Home Meds RX: Doxazosin Mesylate [Cardura] 2 mg PO BEDTIME 08/22/16 [History] RX: Enalapril Maleate 10 mg PO DAILY 08/22/16 [History] RX: Furosemide 20 mg PO BID 08/22/16 [History] RX: Lactobacillus Acidophilus [Acidophilus] 1 each PO DAILY 08/23/16 [History] Dabigatran Etexilate Mesylate 150 mg PO BID 08/25/16 [Rx] RX: Fluticasone Propionate 2 spray NS DAILY PRN 10/09/17 [History] RX: Ipratropium Tensed 2 spray NS BID PRN 10/09/17 [History] RX: Pravastatin Sodium 10 mg PO DAILY 10/09/17 [History] Levofloxacin [Levaquin] 750 mg PO DAILY #4 tab 10/14/17 [Rx] RX: Cholecalciferol (Vitamin D3) [Vitamin D3] 5,000 units PO DAILY tablet 10/14 [Rx] RX: metFORMIN [Glucophage] 500 mg PO BID tablet 10/14/17 [Rx] predniSONE [Prednisone] 40 mg PO DAILY #5 tablet 10/14/17 [Rx] Patient Handouts: Community-Acquired Pneumonia, Adult - Discharge Summary/Plan Comment DC Time >30 min.: No Discharge Summary/Plan Comment: 77 year male with past medical history of HTN, DM, HL, smoker, and COPD, referred for admission to hospital after being seen in clinic for productive cough, fatigue, leukocytosis, and left lower lobe pneumonia on CXR. Patient was started on IV Rocephin, Azithromycin, and Duonebs q 6 hrs and PRN. WBC count trended downward and normalized. Patient had occassional diffuse wheezing on 10/13/2017 and was started on IV Solumedrol for COPD exacerbation. Patient did require oxygen during hospitalization and was weaned off gradually, and maintained sats >90%, however continued to drop sats with ambulation to 89% . This was discussed with patient whom states this may have been ongoing for a long time, states that he is unable to lay flat due to increased SOB for years. Discussed with patient the need to follow up with Dr. Pereira on Sunday and discuss possible home oxygen, as well as Pulmonology consult (to be decided by Dr. Pereira). Patient was adamant about being discharged and verbalized understanding and agreement with following up with Dr. Pereira on Sunday. Advised patient to stop smoking. - General Info Date of Service: 10/14/17 Subjective Update: Pt. states he feels good, denies any SOB or complaints. Still having cough. Is adamant about going home today. States he will follow up with Dr. Pereira on Sunday. Functional Status: Reports: Pain Controlled, Tolerating Diet, Ambulating, Urinating - Review of Systems General: Reports: No Symptoms HEENT: Reports: No Symptoms Pulmonary: Reports: Cough Cardiovascular: Reports: No Symptoms Gastrointestinal: Reports: No Symptoms Genitourinary: Reports: No Symptoms Musculoskeletal: Reports: No Symptoms Skin: Reports: No Symptoms Neurological: Reports: No Symptoms Psychiatric: Reports: No Symptoms - Patient Data Vitals - Most Recent: Last Vital Signs Temp 36.6 C 10/14/17 07:21 Pulse 55 L 10/14/17 07:21 Resp 20 10/14/17 07:21 BP 151/64 H 10/14/17 07:38 Pulse Ox 92 L 10/14/17 07:21 Weight - Most Recent: 135.216 kg Lab Results - Last 24 hrs: Laboratory Results - last 24 hr 10/13/17 10/13/17 10/13/17 Range/Units 11:27 17:19 20:14 POC Glucose 101 123 H 282 H (75-105) mg/dl 10/14/17 Range/Units 07:19 POC Glucose 164 H (75-105) mg/dl [facility]IE Results - Last 24 hrs: Microbiology 10/09/17 10:57 Aerobic Blood Culture - Preliminary Blood - Venous - Lab Draw NO GROWTH AFTER 4 DAYS Anaerobic Blood Culture - Preliminary NO GROWTH AFTER 4 DAYS 10/09/17 10:53 Aerobic Blood Culture - Preliminary Blood - Venous NO GROWTH AFTER 4 DAYS Anaerobic Blood Culture - Preliminary NO GROWTH AFTER 4 DAYS Med Orders - Current: Current Medications Discontinued Medications Acetaminophen (Tylenol) 650 mg PO Q4H PRN PRN Reason: Pain (Mild 1-3)/fever Last Admin: 10/09/17 14:21 Dose: 650 mg Albuterol (Proventil Neb Soln) 2.5 mg NEB Q2H PRN PRN Reason: Shortness Of Breath/wheezing Last Admin: 10/09/17 12:38 Dose: 2.5 mg Albuterol/Ipratropium (Duoneb 3.0-0.5 Mg/3 Ml) 3 ml NEB 0800,1200,1600,2000 [facility] Last Admin: 10/14/17 07:39 Dose: 3 ml Apixaban (Eliquis) 5 mg PO BID [facility] Last Admin: 10/14/17 07:39 Dose: 5 mg Ceftriaxone Sodium (Rocephin) 1 gm IVPUSH DAILY@1200 [facility] Last Admin: 10/13/17 11:40 Dose: 1 gm Cholecalciferol (Vitamin D3) 5,000 units PO DAILY [facility] Last Admin: 10/14/17 07:37 Dose: 5,000 units Doxazosin Mesylate (Cardura) 2 mg PO BEDTIME [facility] Last Admin: 10/13/17 19:34 Dose: 2 mg Enalapril Maleate (Vasotec) 10 mg PO DAILY [facility] Last Admin: 10/14/17 07:38 Dose: 10 mg Enoxaparin Sodium (Lovenox) 40 mg SUBCUT Q24H [facility] Fluconazole (Diflucan) 100 mg PO DAILY [facility] Last Admin: 10/14/17 07:38 Dose: 100 mg Fluticasone Propionate (Flonase) 0 gm BILL DAILY PRN PRN Reason: Allergies Furosemide (Lasix) 20 mg PO BID@0800,1600 [facility] Last Admin: 10/14/17 07:38 Dose: 20 mg Azithromycin 500 mg/ Sodium (Chloride) 250 mls @ 250 mls/hr IV DAILY@1200 [facility] Last Admin: 10/13/17 11:42 Dose: 250 mls/hr Sodium Chloride (Normal Saline) 1,000 mls @ 50 mls/hr IV ASDIRECTED [facility] Last Admin: 10/09/17 11:41 Dose: 50 mls/hr Ipratropium Tensed (Atrovent) 0.5 mg INH BID PRN PRN Reason: Allergies Levofloxacin (Levaquin) 750 mg PO Q24H [facility] Last Admin: 10/13/17 15:09 Dose: 750 mg Levofloxacin (Levaquin) 750 mg PO ONETIME ONE Stop: 10/14/17 08:49 Last Admin: 10/14/17 09:18 Dose: 750 mg Metformin HCl (Glucophage) 500 mg PO BID [facility] Last Admin: 10/14/17 07:37 Dose: 500 mg Methylprednisolone Sodium Succinate (Solu-Medrol) 125 mg IVPUSH Q24H [facility] Last Admin: 10/13/17 15:12 Dose: 125 mg Methylprednisolone Sodium Succinate (Solu-Medrol) 125 mg IVPUSH Q24H [facility] Last Admin: 10/14/17 09:20 Dose: 125 mg Ondansetron HCl (Zofran Odt) 8 mg PO Q6H PRN PRN Reason: nausea, able to take PO Simvastatin (Zocor) 5 mg PO DAILY [facility] Last Admin: 10/14/17 07:39 Dose: 5 mg Temazepam (Restoril) 15 mg PO BEDTIME PRN PRN Reason: Sleep Last Admin: 10/13/17 23:18 Dose: 15 mg - Exam Quality Assessment: Reports: DVT Prophylaxis General: Reports: Alert, Oriented, Cooperative, No Acute Distress HEENT: Reports: Pupils Equal, Pupils Reactive, EOMI, Mucous Membr. Moist/[place] Neck: Reports: Supple, Trachea Midline, No JVD Lungs: Reports: Crackles (left lower lobe, otherwise overall diminished but clear) GI/Abdominal Exam: Normal Bowel Sounds, Soft, Non-Tender, No Organomegaly, No Distention, No Mass (Male) Exam: Deferred Rectal (Males) Exam: Deferred Back Exam: Reports: Normal Inspection, Full Range of Motion Extremities: Normal Inspection, Normal Range of Motion, Non-Tender Skin: Reports: Warm, Dry, Intact Neurological: Reports: No New Focal Deficit, Normal Gait, Normal Speech Psy/Mental Status: Reports: Alert, Normal Affect, Normal Mood EKG INTERPRETATION Rhythm: A-Fib [place]: RAD-Right [place] Deviation P-Wave: Absent QRS: RBBB ST-T: Normal QT: Normal Comparison: NA - No Prior EKG
== END 2017-10-14 10:52 | disposition home or self-care (01) | DRG 194 ==
LOC: CC.MS 10:49 → UNDOADMIN 10:49 → CC.MS 11:08
PROVIDERS: ADMIT Family Medicine; ATTEND Family Medicine
DX: J18.1 Lobar pneumonia, unspecified organism (principal); J44.0 Chronic obstructive pulmonary disease with (acute) lower respiratory infection; J44.1 Chronic obstructive pulmonary disease with (acute) exacerbation; B37.89 Other sites of candidiasis; I10 Essential (primary) hypertension; F17.200 Nicotine dependence, unspecified, uncomplicated; E11.9 Type 2 diabetes mellitus without complications; E78.5 Hyperlipidemia, unspecified; M17.10 Unilateral primary osteoarthritis, unspecified knee; N42.9 Disorder of prostate, unspecified; Z79.84 Long term (current) use of oral hypoglycemic drugs; Z79.02 Long term (current) use of antithrombotics/antiplatelets; Z79.899 Other long term (current) drug therapy; Z66 Do not resuscitate; Z96.659 Presence of unspecified artificial knee joint; Z96.649 Presence of unspecified artificial hip joint
CPT/HCPCS: 36415; 71046; 80048; 80053; 81001; 82962; 85025; 86140; 87040; 87070; 87205; 87804; 93005; 94640; A9270-GY; J0456; J0696; J2930; J7030; J7050; J7620-GY

== ENCOUNTER 2018-01-31 10:32 | Inpatient (IN) | payer MEDICARE, OTHER ==
[2018-01-31] MEDS ORDERED: Sodium Chloride 0.9% 10 ML Syringe FLUSH PRN (12:27)
[2018-01-31] MEDS ORDERED: Zolpidem 5 MG Tab PO PRN (12:27)
[2018-01-31] MEDS ORDERED: Ondansetron 4 MG Tab.DIS PO PRN (12:27)
[2018-01-31] MEDS ORDERED: Acetaminophen/HYDROcodone 325-5 MG Tab PO PRN (12:27)
[2018-01-31] MEDS ORDERED: Ipratropium 0.02% 0.5 MG/2.5 ML Neb Soln INH PRN (12:29)
[2018-01-31] MEDS ORDERED: Clindamycin Phosphate in D5W 300 MG in Premix Bag 1 BAG IV SCH ×2 (12:45)
[2018-01-31 12:51] LABS: CHLORIDE,CL 104 mEq/L (98-106); SODIUM,NA 143 mEq/L (136-145)
[2018-01-31] MEDS: Clindamycin Phosphate in D5W 300 MG in Premix Bag 1 BAG IV SCH ×6 (13:13→23:38)
[2018-01-31] MEDS: Doxazosin 2 MG Tab PO SCH (19:40)
[2018-01-31] MEDS: Apixaban 5 MG Tab PO SCH (19:40)
[2018-01-31] MEDS: Furosemide 20 MG Tab PO SCH (19:41)
[2018-01-31] MEDS: metFORMIN 500 MG Tab PO SCH (19:41)
[2018-02-01] MEDS: Clindamycin Phosphate in D5W 300 MG in Premix Bag 1 BAG IV SCH ×6 (05:36→17:56)
[2018-02-01] MEDS: Enalapril 5 MG Tab PO SCH (08:10)
[2018-02-01] MEDS: Furosemide 20 MG Tab PO SCH ×2 (08:10→20:20)
[2018-02-01] MEDS: metFORMIN 500 MG Tab PO SCH ×2 (08:10→20:20)
[2018-02-01] MEDS: Apixaban 5 MG Tab PO SCH ×2 (08:11→20:20)
[2018-02-01] MEDS: Simvastatin 40 MG Tab PO SCH (08:11)
[2018-02-01] MEDS: Doxazosin 2 MG Tab PO SCH (20:20)
[2018-02-02] MEDS: Clindamycin Phosphate in D5W 300 MG in Premix Bag 1 BAG IV SCH ×4 (01:24→07:08)
[2018-02-02] MEDS: Apixaban 5 MG Tab PO SCH (07:41)
[2018-02-02] MEDS: metFORMIN 500 MG Tab PO SCH (07:41)
[2018-02-02] MEDS: Enalapril 5 MG Tab PO SCH (07:42)
[2018-02-02] MEDS: Furosemide 20 MG Tab PO SCH (07:42)
[2018-02-02 07:44] VITALS: BP 142/54
[2018-02-02] MEDS: Simvastatin 40 MG Tab PO SCH (07:44)
--- NOTE | 2018-02-02 09:23 | PCM.DCSUM1 ---
Discharge Summary - Discharge Data Discharge Date: 02/02/18 Discharge Disposition: Home, Self-Care 01 Condition: Good - Discharge Diagnosis/Problem(s) (1) Cellulitis of left leg SNOMED Code(s): 863393502 ICD Code: L03.116 - CELLULITIS OF LEFT LOWER LIMB Status: Acute Current Visit: Yes - Patient Summary/Data Consults: Consultations 01/31/18 12:31 Consult to Physical Therapy [PT Evaluation and Treatment] [CONS] Routine - Patient Instructions Diet: Usual Diet as Tolerated, Diabetic Diet Activity: As Tolerated, Elevate Extremity Notify Provider of: Fever, Increased Pain, Swelling and Redness, Drainage, Nausea and/or Vomiting - Discharge Plan Home Medications: Home Meds Doxazosin Mesylate [Cardura] 4 mg PO BEDTIME 08/22/16 [History] Enalapril Maleate 20 mg PO DAILY 08/22/16 [History] Furosemide 80 mg PO BID 08/22/16 [History] Lactobacillus Acidophilus [Acidophilus] 1 each PO DAILY 08/23/16 [History] Dabigatran Etexilate Mesylate 150 mg PO BID 08/25/16 [Rx] Ipratropium [place] 2 spray NS BID PRN 10/09/17 [History] Pravastatin Sodium 20 mg PO DAILY 10/09/17 [History] Cholecalciferol (Vitamin D3) [Vitamin D3] 5,000 units PO DAILY tablet 10/14/17 [Rx] metFORMIN [Glucophage] 1,000 mg PO BID 01/31/18 [History] Clindamycin HCl 300 mg PO Q6H 5 Days #20 capsule 02/02/18 [Rx] Patient Handouts: Cellulitis, Adult - Patient Data Vitals - Most Recent: Last Vital Signs Temp 96.7 F 02/02/18 07:45 Pulse 95 02/02/18 07:45 Resp 20 02/02/18 07:45 BP 142/54 H 02/02/18 07:45 Pulse Ox 95 02/02/18 07:45 Weight - Most Recent: 313 lb I&O - Last 24 hours: Intake & Output 02/01/18 02/02/18 02/02/18 22:59 06:59 14:59 Intake Total 50 50 300 Balance 50 50 300 Lab Results - Last 24 hrs: Laboratory Results - last 24 hr 02/01/18 02/01/18 02/01/18 Range/Units 11:56 17:24 20:25 POC Glucose 135 H 89 185 H (75-105) mg/dl 02/02/18 Range/Units 07:31 POC Glucose 140 H (75-105) mg/dl Med Orders - Current: Current Medications Hydrocodone Bitart/Acetaminophen ([place] 325-5 Mg) 1 tab PO Q4H PRN PRN Reason: Pain (moderate 4-6) Last Admin: 01/31/18 19:40 Dose: 1 tab Apixaban (Eliquis) 5 mg PO BID [facility] Last Admin: 02/02/18 07:41 Dose: 5 mg Doxazosin Mesylate (Cardura) 4 mg PO BEDTIME [facility] Last Admin: 02/01/18 20:20 Dose: 4 mg Enalapril Maleate (Vasotec) 20 mg PO DAILY [facility] Last Admin: 02/02/18 07:42 Dose: 20 mg Furosemide (Lasix) 40 mg PO BID [facility] Last Admin: 02/02/18 07:42 Dose: 40 mg Clindamycin Phosphate 300 mg/ (Premix) 50 mls @ 100 mls/hr IV 0000,0600,1200, 1800 [facility] Last Admin: 02/02/18 07:08 Dose: 100 mls/hr Ipratropium [place] (Atrovent) 0.5 mg INH BID PRN PRN Reason: Allergies Metformin HCl (Glucophage) 500 mg PO BID [facility] Last Admin: 02/02/18 07:41 Dose: 500 mg Ondansetron HCl (Zofran Odt) 4 mg PO Q4H PRN PRN Reason: nausea, able to take PO Simvastatin (Zocor) 80 mg PO DAILY [facility] Last Admin: 02/02/18 07:44 Dose: 80 mg Sodium Chloride (Saline Flush) 10 ml FLUSH ASDIRECTED PRN PRN Reason: Keep Vein Open Zolpidem Tartrate (Ambien) 5 mg PO BEDTIME PRN PRN Reason: Sleep Discontinued Medications Clindamycin Phosphate 300 mg/ (Premix) 50 mls @ 100 mls/hr IV Q6H [facility]
--- NOTE | 2018-02-03 19:42 | PCM.PN ---
- General Info Date of Service: 02/01/18 Admission Dx/Problem (Free Text): Cellulitis Functional Status: Reports: Pain Controlled, Tolerating Diet, Ambulating - Review of Systems General: Reports: Fever, Weakness, Fatigue HEENT: Reports: No Symptoms Pulmonary: Denies: Shortness of Breath, Cough Cardiovascular: Reports: Edema. Denies: Chest Pain, Lightheadedness Gastrointestinal: Denies: Abdominal Pain, Nausea, Vomiting Genitourinary: Reports: No Symptoms Musculoskeletal: Reports: Leg Pain Skin: Reports: Other (re) Neurological: Reports: No Symptoms - Patient Data Vitals - Most Recent: Last Vital Signs Temp 96.7 F 02/02/18 07:45 Pulse 95 02/02/18 07:45 Resp 20 02/02/18 07:45 BP 142/54 H 02/02/18 07:45 Pulse Ox 95 02/02/18 07:45 Weight - Most Recent: 313 lb Med Orders - Current: Current Medications Discontinued Medications Hydrocodone Bitart/Acetaminophen ([place] 325-5 Mg) 1 tab PO Q4H PRN PRN Reason: Pain (moderate 4-6) Last Admin: 01/31/18 19:40 Dose: 1 tab Apixaban (Eliquis) 5 mg PO BID [facility] Last Admin: 02/02/18 07:41 Dose: 5 mg Doxazosin Mesylate (Cardura) 4 mg PO BEDTIME [facility] Last Admin: 02/01/18 20:20 Dose: 4 mg Enalapril Maleate (Vasotec) 20 mg PO DAILY [facility] Last Admin: 02/02/18 07:42 Dose: 20 mg Furosemide (Lasix) 40 mg PO BID [facility] Last Admin: 02/02/18 07:42 Dose: 40 mg Clindamycin Phosphate 300 mg/ (Premix) 50 mls @ 100 mls/hr IV Q6H [facility] Clindamycin Phosphate 300 mg/ (Premix) 50 mls @ 100 mls/hr IV 0000,0600,1200, 1800 [facility] Last Admin: 02/02/18 07:08 Dose: 100 mls/hr Ipratropium [place] (Atrovent) 0.5 mg INH BID PRN PRN Reason: Allergies Metformin HCl (Glucophage) 500 mg PO BID [facility] Last Admin: 02/02/18 07:41 Dose: 500 mg Ondansetron HCl (Zofran Odt) 4 mg PO Q4H PRN PRN Reason: nausea, able to take PO Simvastatin (Zocor) 80 mg PO DAILY [facility] Last Admin: 02/02/18 07:44 Dose: 80 mg Sodium Chloride (Saline Flush) 10 ml FLUSH ASDIRECTED PRN PRN Reason: Keep Vein Open Zolpidem Tartrate (Ambien) 5 mg PO BEDTIME PRN PRN Reason: Sleep - Exam General: Alert, Oriented HEENT: Mucous Membr. Moist/[place] Neck: Supple Lungs: Clear to Auscultation, Normal Respiratory Effort Cardiovascular: Regular Rate, Regular Rhythm, Bradycardia (bradycardia noted at times) GI/Abdominal Exam: Normal Bowel Sounds Extremities: Pedal Edema, Increased Warmth, Redness (redness noted to RLE, edema noted bilaterally. Unna boot intake to LLE.) Wound/Incisions: Erythema Improving Neurological: No New Focal Deficit - Problem List & Annotations (1) Cellulitis of left leg SNOMED Code(s): 430179044 Code(s): L03.116 - CELLULITIS OF LEFT LOWER LIMB Status: Acute - Problem List Review Problem List Initiated/Reviewed/Updated: Yes - Assessment Assessment:: Cellulitis of LLE - Plan Plan:: Patient feeling good this am. He does have discomfort in his legs but states chronic for him. Edema improved to LE due to elevation. Per line markings on leg, RLE redness is improving. Unna boot intact to LLE. Did have low grade fevers last evening. Labs on admit on within normal range with WBC at 9.3, CRP negative. Will continue with IV Rocephin, PT. Probable discharge home tomorrow if remains afebrile.
== END 2018-02-02 10:30 | disposition home or self-care (01) | DRG 603 ==
LOC: UNDOADMIN 10:32 → CC.MS 10:32
PROVIDERS: ADMIT Family Medicine; ATTEND Family Medicine
DX: L03.116 Cellulitis of left lower limb (principal); I48.92 Unspecified atrial flutter; I48.91 Unspecified atrial fibrillation; Z79.84 Long term (current) use of oral hypoglycemic drugs; Z79.899 Other long term (current) drug therapy
CPT/HCPCS: 29580-GP; 36415; 80048; 82962; 85025; 86140; 97110-GP; 97161-GP; A9270-GY; J3490

== ENCOUNTER 2018-03-19 11:03 | Observation (INO) | payer MEDICARE, OTHER ==
[2018-03-19] MEDS ORDERED: Ondansetron 4 MG Tab.DIS PO PRN (13:16)
[2018-03-19] MEDS ORDERED: Ondansetron 4 MG/2 ML SDV IV PRN (13:16)
[2018-03-19] MEDS ORDERED: Temazepam 15 MG Cap PO PRN (13:16)
[2018-03-19] MEDS ORDERED: Sodium Chloride 0.9% 1,000 ML IV SCH (13:30)
[2018-03-19 13:50] LABS: CHLORIDE,CL 105 mEq/L (98-106); SODIUM,NA 142 mEq/L (136-145)
[2018-03-19] MEDS: Levofloxacin/Dextrose 5%-Water 500 MG in Premix Bag 1 BAG IV SCH (13:59)
[2018-03-19] MEDS: Doxazosin 2 MG Tab PO SCH (19:41)
[2018-03-19] MEDS ORDERED: Non-Formulary Medication 1 Each (Dabigatran 150 MG) PO SCH (20:00)
[2018-03-20] MEDS: Enalapril 5 MG Tab PO SCH (07:38)
[2018-03-20] MEDS: Nicotine 7 MG/24 Hr Patch TRDERM SCH (07:39)
[2018-03-20] MEDS: Levofloxacin/Dextrose 5%-Water 500 MG in Premix Bag 1 BAG IV SCH (11:48)
--- NOTE | 2018-03-20 14:26 | PCM.PN ---
- General Info Date of Service: 03/20/18 Admission Dx/Problem (Free Text): Diarrhea Weakness UTI Functional Status: Reports: Pain Controlled, Tolerating Diet, Ambulating - Review of Systems General: Denies: Fever, Weakness, Fatigue HEENT: Reports: No Symptoms Pulmonary: Denies: Shortness of Breath, Cough Cardiovascular: Reports: Edema. Denies: Chest Pain, Lightheadedness Gastrointestinal: Reports: Diarrhea (states has had diarrhea yesterday but today , stools were more formed today). Denies: Abdominal Pain, Nausea, Vomiting Genitourinary: Reports: No Symptoms Musculoskeletal: Reports: Leg Pain Neurological: Reports: No Symptoms - Patient Data Vitals - Most Recent: Last Vital Signs Temp 97.5 F 03/20/18 12:00 Pulse 50 L 03/20/18 12:00 Resp 20 03/20/18 12:00 BP 149/64 H 03/20/18 12:00 Pulse Ox 96 03/20/18 12:00 Weight - Most Recent: 321 lb 6.943 oz I&O - Last 24 Hours: Intake & Output 03/19/18 03/20/18 03/20/18 22:59 06:59 14:59 Intake Total 1450 640 980 Output Total 785 664 8245 Balance 730 40 -220 Lab Results Last 24 Hours: Laboratory Results - last 24 hr 03/19/18 03/19/18 Range/Units 16:15 17:41 POC Glucose 108 H (75-105) mg/dl Urine Color Dark yellow (YELLOW) Urine Appearance Cloudy (CLEAR) Urine pH 5.5 (4.5-8.0) Ur Specific [place] 1.025 H (1.003-1.020) Urine Protein Negative (NEGATIVE) mg/dL Urine Glucose (UA) Negative (NEGATIVE) mg/dL Urine Ketones Trace H (NEGATIVE) mg/dL Urine Occult Blood Trace-intact H (NEGATIVE) Urine Nitrite Negative (NEGATIVE) Urine Bilirubin Negative (NEGATIVE) Urine Urobilinogen 0.2 (0.2-1.0) EU/dL Ur Leukocyte Esterase Large H (NEGATIVE) Urine RBC Not seen (0-5) /HPF Urine WBC >100 H (0-5) /HPF Ur Epithelial Cells Few H (NOT SEEN) /HPF Urine Bacteria Few H (NOT SEEN) /HPF Urine Mucus Few H (NOT SEEN) /HPF [place] Results Last 24 Hours: Microbiology 03/19/18 22:50 C. difficile DNA Amplification - Final Stool / Feces NEGATIVE CDIFF BY DNA 03/19/18 16:15 Urine Culture - Preliminary Urine, Voided Gram Positive Cocci Med Orders - Current: Current Medications Doxazosin Mesylate (Cardura) 2 mg PO BEDTIME [facility] Last Admin: 03/19/18 19:41 Dose: 2 mg Enalapril Maleate (Vasotec) 20 mg PO DAILY [facility] Last Admin: 03/20/18 07:38 Dose: 20 mg Levofloxacin/Dextrose 500 mg/ (Premix) 100 mls @ 100 mls/hr IV DAILY@1200 [facility] Last Admin: 03/20/18 11:48 Dose: 100 mls/hr Sodium Chloride (Normal Saline) 1,000 mls @ 25 mls/hr IV ASDIRECTED [facility] Last Admin: 03/19/18 13:59 Dose: 25 mls/hr Nicotine (Habitrol) 7 mg TRDERM DAILY [facility] Last Admin: 03/20/18 07:39 Dose: 7 mg Non-Formulary Medication (Dabigatran) 150 mg PO BID [facility] Ondansetron HCl (Zofran Odt) 8 mg PO Q6H PRN PRN Reason: nausea, able to take PO Ondansetron HCl (Zofran) 8 mg IV Q6H PRN PRN Reason: Nausea/Vomiting Temazepam (Restoril) 15 mg PO BEDTIME PRN PRN Reason: Sleep - Exam General: Alert, Oriented HEENT: Mucous Membr. Moist/[place] Neck: Supple Lungs: Clear to Auscultation, Normal Respiratory Effort Cardiovascular: Irregular Rhythm, Bradycardia GI/Abdominal Exam: Normal Bowel Sounds, Soft, Non-Tender Extremities: Pedal Edema (2-3+ edema in LLE, 2+ in RLE) Skin: Warm, Dry Neurological: No New Focal Deficit - Problem List & Annotations (1) Weakness SNOMED Code(s): 46277505 Code(s): R53.1 - WEAKNESS Status: Acute Priority: High Current Visit: Yes (2) UTI (urinary tract infection) SNOMED Code(s): 99063503 Code(s): N39.0 - URINARY TRACT INFECTION, SITE NOT SPECIFIED Status: Acute Priority: High Current Visit: Yes Qualifiers: Encounter type: subsequent encounter (3) Diarrhea SNOMED Code(s): 84447429 Code(s): R19.7 - DIARRHEA, UNSPECIFIED Status: Acute Priority: High Current Visit: Yes (4) Bradycardia SNOMED Code(s): 14800169 Code(s): R00.1 - BRADYCARDIA, UNSPECIFIED Status: Acute Priority: High Current Visit: Yes - Problem List Review Problem List Initiated/Reviewed/Updated: Yes - Assessment Assessment:: Patient was admitted with worsening diarrhea, fever. He had been recently diagnosed with a UTI with culture indicating pseudomonas. Was admitted for stool studies, IV Levaquin. Metformin held although has been on the same dose for years. Patient states is feeling good today. Ambulating about in room, to bathroom and tolerating well. States stools are more formed today. Stools were collected yesterday, waiting on micro, c diff negative. Urine culture shows gram positive cocci. Afebrile. Heart rhythm atrial fib, does drop down in to the 40s at times. Asymptomatic. No shortness of breath or lightheadedness. Will continue with IV Levaquin, await full stool culture and urine sensitivities. Continue cardiac monitoring. Repeat labs in am. Possible discharge home tomorrow.
[2018-03-20] MEDS: Doxazosin 2 MG Tab PO SCH (19:37)
[2018-03-21] MEDS: Nicotine 7 MG/24 Hr Patch TRDERM SCH (07:31)
[2018-03-21] MEDS: Enalapril 5 MG Tab PO SCH (07:31)
[2018-03-21 07:45] VITALS: BP 154/61
[2018-03-21 07:49] LABS: CHLORIDE,CL 104 mEq/L (98-106); SODIUM,NA 141 mEq/L (136-145)
--- NOTE | 2018-03-21 22:05 | PCM.DCSUM1 ---
Discharge Summary - Hospital Course Free Text/Narrative:: Patient admitted from clinic after seeing Dr. Pereira for increasing diarrhea. Had recently had stool studies done and c diff was negative. Had felt feverish and bloated. No abdominal cramping. No blood in stools. Was recently treated for a UTI that grew out pseudomonas. Was treated with Levaquin. UA done on admit still positive. Culture ordered. Initial labs done, WBC stable. CRP negative. Started on IV Levaquin, stool studies ordered. Diagnosis: Stroke: No Modified Harwick Scale: No Symptoms at All Modified Harwick Scale Score: 0 - Discharge Data Discharge Date: 03/21/18 Discharge Disposition: Home, Self-Care 01 Condition: Good - Discharge Diagnosis/Problem(s) (1) Weakness SNOMED Code(s): 46775314 ICD Code: R53.1 - WEAKNESS Status: Acute Priority: High (2) UTI (urinary tract infection) SNOMED Code(s): 34574024 ICD Code: N39.0 - URINARY TRACT INFECTION, SITE NOT SPECIFIED Status: Acute Priority: High Qualifiers: Encounter type: subsequent encounter (3) Diarrhea SNOMED Code(s): 23289512 ICD Code: R19.7 - DIARRHEA, UNSPECIFIED Status: Acute Priority: High (4) Bradycardia SNOMED Code(s): 61803512 ICD Code: R00.1 - BRADYCARDIA, UNSPECIFIED Status: Acute Priority: High - Patient Summary/Data Complications: none Hospital Course: Patient has done well during stay. Up and ambulating per self now. Denies any abdominal pain. Stools have become more formed. Stool studies negative. Urine culture did grow out enterococcus, sensitive to Levaquin. Afebrile. Appetite has been good. Telemetry has shown atrial fib, rate does drop to 40 at times. Denies lightheadedness, chest pain or shortness of breath. Does continue to have edema, 2-3+ in LLE but improved from the past, 2+ RLE. Will discharge home on oral Levaquin. Follow up with Dr. Pereira next week. Will arrange for cardiology consult due to atrial fib with bradycardia. - Patient Instructions Diet: Diabetic Diet Activity: As Tolerated Other/Special Instructions: Check blood sugars twice per day for the next 2-3 weeks and bring log to Dr. Pereira's visit - Discharge Plan *PRESCRIPTION DRUG MONITORING PROGRAM REVIEWED*: No *COPY OF PRESCRIPTION DRUG MONITORING REPORT IN PATIENT LIU: No Prescriptions/Med Rec: Levofloxacin [Levaquin] 500 mg PO DAILY #10 tablet Home Medications: Home Meds Doxazosin Mesylate [Cardura] 2 mg PO BEDTIME 08/22/16 [History] Enalapril Maleate 20 mg PO DAILY 08/22/16 [History] Furosemide 80 mg PO BID 08/22/16 [History] Lactobacillus Acidophilus [Acidophilus] 1 each PO DAILY 08/23/16 [History] Ipratropium Delta 2 spray NS BID PRN 10/09/17 [History] Pravastatin Sodium 10 mg PO DAILY 10/09/17 [History] Cholecalciferol (Vitamin D3) [Vitamin D3] 5,000 units PO DAILY tablet 10/14/17 [Rx] Dabigatran [Pradaxa] 150 mg PO BID 03/19/18 [History] Fluticasone Propionate [Flonase] 2 sprays IN DAILY PRN 03/19/18 [History] Hydrocodone/Acetaminophen [[place] 5-325 Tablet] 1 tab PO Q6H PRN 03/19/18 [ History] Levofloxacin [Levaquin] 500 mg PO DAILY #10 tablet 03/21/18 [Rx] Referrals: Trae Pereira MD [Primary Care Provider] - (Follow up with Dr Pereira in 2 weeks.) - Discharge Summary/Plan Comment DC Time >30 min.: No - General Info Date of Service: 03/21/18 Admission Dx/Problem (Free Text: Diarrhea Weakness UTI Functional Status: Reports: Pain Controlled, Tolerating Diet, Ambulating - Review of Systems General: Denies: Weakness, Fatigue HEENT: Reports: No Symptoms Pulmonary: Denies: Shortness of Breath, Cough Cardiovascular: Reports: Edema. Denies: Chest Pain, Lightheadedness Gastrointestinal: Denies: Abdominal Pain, Diarrhea, Nausea, Vomiting Genitourinary: Reports: Frequency. Denies: Dysuria Musculoskeletal: Reports: No Symptoms Skin: Reports: No Symptoms Neurological: Reports: No Symptoms - Patient Data Vitals - Most Recent: Last Vital Signs Temp 97.7 F 03/21/18 07:32 Pulse 36 L 03/21/18 07:32 Resp 20 03/21/18 07:32 BP 172/67 H 03/21/18 07:32 Pulse Ox 94 L 03/21/18 07:32 Weight - Most Recent: 323 lb 10.217 oz I&O - Last 24 hours: Intake & Output 03/21/18 03/21/18 03/21/18 06:59 14:59 22:59 Intake Total 1040 Output Total 1950 350 Balance -910 -350 Lab Results - Last 24 hrs: Laboratory Results - last 24 hr 03/21/18 03/21/18 03/21/18 Range/Units 07:00 07:00 07:29 WBC 7.0 (5.0-10.0) 10^3/uL RBC 4.30 L (4.50-6.00) 10^6/uL Hgb 13.6 L (14.0-18.0) g/dL Hct 41.9 (40.0-54.0) % MCV 97.4 H (82.0-94.0) fL MCH 31.6 (27.0-32.0) pg MCHC 32.5 L (33.0-38.0) g/dL RDW Coeff of Laurie 13.3 (11.0-15.0) % Plt Count 126 L (150-400) 10^3/uL Neut % (Auto) 64.8 (35-85) % Lymph % (Auto) 19.7 (10-55) % [place] % (Auto) 11.1 (0-16) % Eos % (Auto) 3.8 (0-5) % Baso % (Auto) 0.6 (0-3) % Neut # (Auto) 4.56 (1.80-7.00) 10^3/uL Lymph # (Auto) 1.39 (1.00-4.80) 10^3/uL [place] # (Auto) 0.78 (0.00-0.80) 10^3/uL Eos # (Auto) 0.27 (0.00-0.45) 10^3/uL Baso # (Auto) 0.04 10^3/uL Sodium 141 (136-145) mEq/L Potassium 4.0 (3.5-5.0) mEq/L Chloride 104 (98-106) mEq/L Carbon Dioxide 29 (21-32) mmol/L BUN 13 (7-18) mg/dL Creatinine 0.9 (0.7-1.3) mg/dL Est Cr Clr Drug Dosing 76.11 mL/min Estimated GFR (MDRD) > 60 (>=60) mL/min Glucose 129 H D (75-99) mg/dL POC Glucose 123 H (75-105) mg/dl Calcium 8.8 (8.4-10.1) mg/dL C-Reactive Protein < 0.2 L (0.2-0.8) mg/dL EVIE Results - Last 24 hrs: Microbiology 03/19/18 16:15 Urine Culture - Final Urine, Voided Enterococcus Faecalis Med Orders - Current: Current Medications Discontinued Medications Doxazosin Mesylate (Cardura) 2 mg PO BEDTIME COUNTS INCLUDE 234 BEDS AT THE [facility] Last Admin: 03/20/18 19:37 Dose: 2 mg Enalapril Maleate (Vasotec) 20 mg PO DAILY COUNTS INCLUDE 234 BEDS AT THE [facility] Last Admin: 03/21/18 07:31 Dose: 20 mg Levofloxacin/Dextrose 500 mg/ (Premix) 100 mls @ 100 mls/hr IV DAILY@1200 COUNTS INCLUDE 234 BEDS AT THE [facility] Last Admin: 03/20/18 11:48 Dose: 100 mls/hr Sodium Chloride (Normal Saline) 1,000 mls @ 25 mls/hr IV ASDIRECTED COUNTS INCLUDE 234 BEDS AT THE [facility] Last Admin: 03/19/18 13:59 Dose: 25 mls/hr Nicotine (Habitrol) 7 mg TRDERM DAILY COUNTS INCLUDE 234 BEDS AT THE [facility] Last Admin: 03/21/18 07:31 Dose: 7 mg Non-Formulary Medication (Dabigatran) 150 mg PO BID COUNTS INCLUDE 234 BEDS AT THE [facility] Ondansetron HCl (Zofran Odt) 8 mg PO Q6H PRN PRN Reason: nausea, able to take PO Ondansetron HCl (Zofran) 8 mg IV Q6H PRN PRN Reason: Nausea/Vomiting Temazepam (Restoril) 15 mg PO BEDTIME PRN PRN Reason: Sleep - Exam General: Reports: Alert, Oriented Neck: Reports: Supple Lungs: Reports: Clear to Auscultation, Normal Respiratory Effort Cardiovascular: Reports: Irregular Rhythm, Bradycardia GI/Abdominal Exam: Normal Bowel Sounds, Soft, Non-Tender Extremities: Pedal Edema (2-3+ edema to left lower extremity, 2+ to right lower extremity) Skin: Reports: Warm, Dry Neurological: Reports: No New Focal Deficit
== END 2018-03-21 10:10 | disposition home or self-care (01) ==
LOC: CC.MS 11:03
PROVIDERS: ADMIT Family Medicine; ATTEND Family Medicine
DX: R19.7 Diarrhea, unspecified (principal); N39.0 Urinary tract infection, site not specified; R00.1 Bradycardia, unspecified; Z79.899 Other long term (current) drug therapy
CPT/HCPCS: 36415; 80048; 80053; 81001; 82962; 83735; 85025; 86140; 87045; 87046; 87086; 87088; 87186; 87493; 93005; 93010; 96365; 96366; 99217; 99219; 99225; A9270; G0378; J1956; J7030

== ENCOUNTER → 2018-04-03 | Day surgery (SDC) | payer MEDICARE, OTHER ==
[~2018-04-03] MED LIST: Lactated Ringers 1,000 ML IV SCH; Lactated Ringers 1,000 ML ONE; Meperidine PF 25 MG/ML Syringe IV ONE; Meperidine PF 25 MG/ML Syringe ONE; Meperidine PF 50 MG/ML Syringe ONE; Midazolam 1 MG/ML 2 ML SDV IV ONE; Midazolam 1 MG/ML 2 ML SDV ONE
[2018-04-03 14:17] VITALS: BP 117/51
--- NOTE | 2018-04-05 10:00 | OR ---
DATE OF OPERATION: 04/03/2018 PREOPERATIVE DIAGNOSIS: PERSISTENT DIARRHEA. POSTOPERATIVE DIAGNOSIS: PERSISTENT DIARRHEA. SURGEON: Trae Pereira MD PROCEDURE: FULL LENGTH COLONOSCOPY WITH BIOPSIES X4. ANESTHESIA: Conscious sedation with 2 mg Versed and 25 mg Phenergan with continuous O2 saturation monitoring and nurse assist. Oxygenation stayed above 90% the whole time. COMPLICATIONS: None. SPECIMEN: Biopsy x4 at cecum, hepatic and splenic flexure along with mid to distal sigmoid colon. FINDINGS: 1. Full-length colonoscopy. 2. Marginal prep. 3. Moderate to severe distal sigmoid diverticulosis. 4. Focal area of colitis, likely diverticular in nature. RECOMMENDATIONS: Medical followup with Dr. Pereira. INDICATIONS: The patient has been ongoing issues with diarrhea. Stool studies and CT scan of the abdomen and pelvis have been negative. We elected to proceed with diagnostic scope. DESCRIPTION OF PROCEDURE: The patient was prepped and draped, placed in the left lateral decubitus position. A lubricated Olympus colonoscope was inserted and easily advanced to the cecum. Direct visualization of the ileocecal valve and appendiceal orifice was accomplished. The bowel prep was marginal. The patient had a lot of liquid stool throughout the colon, most of this could be suctioned, and visualization was adequate but not excellent. Smaller lesions certainly may have been missed. Upon withdrawal, cecum, ascending, and transverse colon appeared completely benign. We did do a random biopsy at the cecum, hepatic, and splenic flexures. The descending colon was unremarkable. In the sigmoid colon, the patient had moderate to severe diverticulosis starting at the mid to distal portion of the sigmoid, extending to the rectosigmoid junction. There was 1 focal area of colitis which was likely diverticular in nature. Biopsy of that was taken. The rectal vault was unremarkable. Retroflexion of scope in the rectum showed no anal lesions. Air was suctioned, and scope removed without complication. JOE/PABLO /[id number]
== END ==
LOC: CC.SDS 10:44
PROVIDERS: ATTEND Family Medicine
DX: K52.9 Noninfective gastroenteritis and colitis, unspecified (principal); K57.30 Diverticulosis of large intestine without perforation or abscess without bleeding; I10 Essential (primary) hypertension; E11.9 Type 2 diabetes mellitus without complications; F17.210 Nicotine dependence, cigarettes, uncomplicated; E78.00 Pure hypercholesterolemia, unspecified; Z79.899 Other long term (current) drug therapy
CPT/HCPCS: 45380; J2175; J2250; J7120; 88305

== ENCOUNTER 2018-10-03 11:39 | Observation (INO) | payer MEDICARE, OTHER ==
[2018-10-03] MEDS ORDERED: Sodium Chloride 0.9% 10 ML Syringe FLUSH PRN (12:51)
[2018-10-03] MEDS ORDERED: Ipratropium 0.02% 0.5 MG/2.5 ML Neb Soln INH PRN (13:00)
[2018-10-03] MEDS ORDERED: Fluticasone Propionate Nasal Spray 16 GM Bottle NAS PRN (13:00)
[2018-10-03 13:22] LABS: CHLORIDE,CL 105 mEq/L (98-106); SODIUM,NA 142 mEq/L (136-145)
[2018-10-03] MEDS: Furosemide 40 MG/4 ML VIAL IVPUSH SCH (13:39)
[2018-10-03] MEDS: APIXABAN 5 MG PO SCH ×2 (19:38→19:41)
[2018-10-03] MEDS ORDERED: Doxazosin 2 MG Tab PO SCH (20:00)
[2018-10-03] MEDS ORDERED: PRAVASTATIN 20 MG PO SCH (20:00)
[2018-10-03] MEDS ORDERED: DOXAZOSIN 8 MG PO SCH (20:00)
[2018-10-04] MEDS ORDERED: METFORMIN 500 MG PO SCH (08:00)
[2018-10-04] MEDS ORDERED: Simvastatin 10 MG Tab PO SCH (08:00)
[2018-10-04] MEDS ORDERED: Enalapril 5 MG Tab PO SCH (08:00)
[2018-10-04] MEDS ORDERED: ENALAPRIL 20 MG PO SCH (08:00)
[2018-10-04] MEDS: Furosemide 40 MG/4 ML VIAL IVPUSH SCH (08:23)
[2018-10-04] MEDS: APIXABAN 5 MG PO SCH (08:24)
[2018-10-04 08:26] VITALS: BP 154/64
--- NOTE | 2018-10-04 21:07 | PCM.DCSUM1 ---
Discharge Summary - Hospital Course Free Text/Narrative:: Patient presented to clinic to see Dr. Pereira due to increased edema in his legs. Has had intermittent issues with edema in the past. States had noted increased drainage from legs. He does note improvement with elevation and diuretics. No evidence of cellulitis noted. Heart rate low in clinic, 44. History of sick sinus syndrome. Does report lightheadedness with position changes, standing. Admitted for cardiac monitoring. Unna boot application by PT. Diagnosis: Stroke: No Modified Alber Scale: No Symptoms at All Modified Alber Scale Score: 0 - Discharge Data Discharge Date: 10/04/18 Discharge Disposition: DC/Tfer to Acute Hospital 02 Condition: Fair - Patient Summary/Data Complications: none Consults: Consultations 10/03/18 12:51 PT Evaluation and Treatment [CONS] Routine Hospital Course: Patient stable. Denies any chest pain or shortness of breath. Does not lightheadedness at times. Edema improved in lower legs after Unna boot application. Heart rate noted to drop to 31-35 at rest, 40s with activity. Blood pressure stable. [facility] cardiology contacted with concerns for need of pacemaker due to symptomatic bradycardia. Hospitalist accepted patient in transfer. - Patient Instructions Diet: NPO Activity: As Tolerated Other/Special Instructions: Transfer to Dr. Loyd - Discharge Plan *PRESCRIPTION DRUG MONITORING PROGRAM REVIEWED*: No *COPY OF PRESCRIPTION DRUG MONITORING REPORT IN PATIENT LIU: No Home Medications: Home Meds Doxazosin Mesylate [Cardura] 4 mg PO BEDTIME 08/22/16 [History] Enalapril Maleate 10 mg PO DAILY 08/22/16 [History] Furosemide 60 mg PO BID 08/22/16 [History] Ipratropium [place] 2 spray NS BID PRN 10/09/17 [History] Pravastatin Sodium 10 mg PO DAILY 10/09/17 [History] Dabigatran [Pradaxa] 150 mg PO BID 03/19/18 [History] Fluticasone Propionate [Flonase] 2 sprays IN DAILY PRN 03/19/18 [History] metFORMIN HCl [Metformin HCl ER] 500 mg PO DAILY 10/03/18 [History] - Discharge Summary/Plan Comment DC Time >30 min.: Yes Discharge Summary/Plan Comment: Transfer to [facility] hospitalist/farmworkers. Time for exam 10 minutes Time for consultation 15 minutes Time for orders/documentation 15 minutes - General Info Date of Service: 10/04/18 Admission Dx/Problem (Free Text: Bradycardia Functional Status: Reports: Pain Controlled, Tolerating Diet, Ambulating - Review of Systems General: Denies: Weakness, Fatigue HEENT: Reports: No Symptoms Pulmonary: Denies: Shortness of Breath, Cough Cardiovascular: Reports: Edema, Lightheadedness. Denies: Chest Pain Gastrointestinal: Denies: Abdominal Pain, Nausea, Vomiting Genitourinary: Reports: No Symptoms Musculoskeletal: Reports: Leg Pain Neurological: Reports: No Symptoms - Patient Data Vitals - Most Recent: Last Vital Signs Temp 98.3 F 10/04/18 08:00 Pulse 44 L 10/04/18 08:00 Resp 18 10/04/18 08:00 BP 154/64 H 10/04/18 08:00 Pulse Ox 93 L 10/04/18 08:00 Weight - Most Recent: 320 lb Lab Results - Last 24 hrs: Laboratory Results - last 24 hr 10/03/18 10/03/18 10/04/18 Range/Units 17:22 20:02 08:02 POC Glucose 76 161 H 128 H (75-105) mg/dl Med Orders - Current: Current Medications Discontinued Medications Doxazosin Mesylate (Cardura) 4 mg PO BEDTIME [facility] Enalapril Maleate (Vasotec) 10 mg PO DAILY [facility] Fluticasone Propionate (Flonase) 0 gm BILL DAILY PRN PRN Reason: Allergies Furosemide (Lasix) 40 mg IVPUSH BIDDIURETIC [facility] Last Admin: 10/04/18 08:23 Dose: 40 mg Ipratropium [place] (Atrovent) 2 mg INH BID PRN PRN Reason: Allergies Metformin HCl (Glucophage Xr) 500 mg PO DAILY [facility] Last Admin: 10/04/18 08:23 Dose: 500 mg Ptom Apixaban 5 (Mg Tab) 5 each PO BID [facility] Last Admin: 10/04/18 08:24 Dose: Not Given Ptom Doxazosin (8mg Tab) 4 mg PO BEDTIME [facility] Last Admin: 10/03/18 19:36 Dose: 4 mg Ptom Enalapril (20mg Tab) 10 mg PO DAILY [facility] Last Admin: 10/04/18 08:23 Dose: 10 mg Ptom Pravastatin (20mg Tab) 10 mg PO BEDTIME [facility] Last Admin: 10/03/18 19:37 Dose: 10 mg Simvastatin (Zocor) 5 mg PO DAILY [facility] Sodium Chloride (Saline Flush) 10 ml FLUSH ASDIRECTED PRN PRN Reason: Keep Vein Open - Exam General: Reports: Alert, Oriented HEENT: Reports: Mucous Membr. Moist/[place] Neck: Reports: Supple Lungs: Reports: Clear to Auscultation, Normal Respiratory Effort Cardiovascular: Reports: Regular Rate, Regular Rhythm GI/Abdominal Exam: Normal Bowel Sounds, Soft, Non-Tender Extremities: Normal Inspection, Pedal Edema (Unna boots intact) Skin: Reports: Warm, Dry Neurological: Reports: No New Focal Deficit
== END 2018-10-04 09:10 ==
LOC: CC.MS 11:39 → UNDOADMOB 11:39 → CC.MS 12:51
PROVIDERS: ADMIT Family Medicine; ATTEND Family Medicine
DX: I87.2 Venous insufficiency (chronic) (peripheral) (principal); I10 Essential (primary) hypertension; I48.91 Unspecified atrial fibrillation; I48.92 Unspecified atrial flutter; I49.5 Sick sinus syndrome; E11.9 Type 2 diabetes mellitus without complications; E78.00 Pure hypercholesterolemia, unspecified; R91.1 Solitary pulmonary nodule; M17.10 Unilateral primary osteoarthritis, unspecified knee; Z79.84 Long term (current) use of oral hypoglycemic drugs; Z79.899 Other long term (current) drug therapy
CPT/HCPCS: 29580-GP; 36415; 80048; 82962; 85025; 86140; 93005; 96374; 96376; A9270-GY; G0378; J1940

== ENCOUNTER 2020-01-07 05:55 | Emergency (ER) | payer MEDICARE, OTHER ==
[2020-01-07 07:04] LABS: CHLORIDE,CL 104 mEq/L (98-106); SODIUM,NA 142 mEq/L (136-145)
--- NOTE | 2020-01-07 07:14 | EDM.PDOC ---
ED HPI GENERAL MEDICAL PROBLEM - General Chief Complaint: General Stated Complaint: SOB, cough Time Seen by Provider: 01/07/20 06:35 Source of Information: Reports: Patient History Limitations: Reports: No Limitations - History of Present Illness INITIAL COMMENTS - FREE TEXT/NARRATIVE: Meño is an 79 yo male who presents to the ED via private vehicle with complaints of shortness of breath. States it is worse when he lays down. Has known history of CHF and COPD. Symptoms started around 800pm last night. If he gets up and ambulates it seems to get better. He admits to a cough but does have a chronic cough. Current smoker for 50+ years and currently smokng 1/2 ppd. Admits he is able to cough up clear phlegm on occasion. Denies any Covid exposure. - Related Data Allergies Allergy/AdvReac Type Severity Reaction Status Date / Time No Known Allergies Allergy Verified 01/07/20 07:02 Home Meds: Home Meds Doxazosin Mesylate [Cardura] 4 mg PO BEDTIME 08/22/16 [History] Enalapril Maleate 10 mg PO DAILY 08/22/16 [History] Furosemide 60 mg PO BID 08/22/16 [History] Ipratropium [place] 2 spray NS BID PRN 10/09/17 [History] Pravastatin Sodium 10 mg PO DAILY 10/09/17 [History] Dabigatran [Pradaxa] 150 mg PO BID 03/19/18 [History] Fluticasone Propionate [Flonase] 2 sprays IN DAILY PRN 03/19/18 [History] metFORMIN HCl [Metformin HCl ER] 500 mg PO DAILY 10/03/18 [History] Lactobacillus Acidophilus [Acidophilus Lactobacilli] 1 each PO DAILY 01/07/20 [History] Past Medical History HEENT History: Reports: Cataract, Hard of Hearing Cardiovascular History: Reports: Arrhythmia, High Cholesterol, Hypertension, Pacemaker Respiratory History: Reports: COPD Neurological History: Reports: Neuropathy, Peripheral Endocrine/Metabolic History: Reports: Diabetes, Type II Hematologic History: Reports: None Oncologic (Cancer) History: Reports: None - Past Surgical History HEENT Surgical History: Reports: Cataract Surgery Endocrine Surgical History: Reports: None Musculoskeletal Surgical History: Reports: Hip Replacement, Knee Replacement, Other (See Below) Other Musculoskeletal Surgeries/Procedures:: left forearm fx repair, nerve stimulator in the back Social & Family History - Family History Family Medical History: Noncontributory - Tobacco Use Smoking Status *Q: Current Every Day Smoker Years of Tobacco use: 50 Packs/Tins Daily: 0.5 - Caffeine Use Caffeine Use: Reports: Coffee - Recreational Drug Use Recreational Drug Use: No ED ROS GENERAL - Review of Systems Review Of Systems: See Below Constitutional: Denies: Fever, Chills HEENT: Reports: No Symptoms. Denies: Rhinitis, Sinus Problem, Throat Pain Respiratory: Reports: Shortness of Breath, Cough. Denies: Wheezing, Pleuritic Chest Pain Cardiovascular: Reports: Edema. Denies: Chest Pain, Lightheadedness, Palpitations, Syncope GI/Abdominal: Reports: No Symptoms. Denies: Bloody Stool, Constipation, Diarrhea, Nausea, Vomiting : Reports: No Symptoms Musculoskeletal: Reports: No Symptoms Skin: Reports: No Symptoms Neurological: Reports: No Symptoms ED EXAM, GENERAL - Physical Exam Exam: See Below Exam Limited By: No Limitations General Appearance: Alert, No Apparent Distress Ears: Normal External Exam, Normal Canal, Hearing Grossly Normal, Normal TMs Nose: Normal Inspection, Normal Mucosa, No Blood Throat/Mouth: Normal Inspection, Normal Lips, Normal Teeth, Normal Gums, Normal Oropharynx, Normal Voice, No Airway Compromise Head: Atraumatic, Normocephalic Neck: Normal Inspection, Supple Respiratory/Chest: No Respiratory Distress, No Accessory Muscle Use. No: Rales, Rhonchi, Wheezing Cardiovascular: Regular Rate, Rhythm, No Murmur GI/Abdominal: Distended. No: Guarding, Rigid, Rebound, Tender, Hepatomegaly, Splenomegaly Extremities: Non-Tender, Pedal Edema Neurological: Alert, Oriented, Normal Cognition, No Motor/Sensory Deficits Psychiatric: Normal Affect, Normal Mood Skin Exam: Warm, Dry, Intact, Normal Color, No Rash Course - Vital Signs Last Recorded V/S: Last Vital Signs Temp 97.6 F 01/07/20 07:00 Pulse 62 01/07/20 08:14 Resp 20 01/07/20 08:14 BP 122/65 01/07/20 08:14 Pulse Ox 94 L 01/07/20 08:14 - Orders/Labs/Meds Orders: Active Orders 24 hr Category Date Time Status Abdomen Ltd [US] Stat Exams 01/07/20 08:13 Taken Chest 2V [CR] Stat Exams 08/26/20 06:20 Taken Labs: Laboratory Tests 01/07/20 01/07/20 01/07/20 Range/Units 06:10 06:35 06:35 WBC 8.3 (5.0-10.0) 10^3/uL RBC 4.48 L (4.50-6.00) 10^6/uL Hgb 14.1 (14.0-18.0) g/dL Hct 43.5 (40.0-54.0) % MCV 97.1 H (82.0-94.0) fL MCH 31.5 (27.0-32.0) pg MCHC 32.4 L (33.0-38.0) g/dL RDW Coeff of Laurie 14.2 (11.0-15.0) % Plt Count 163 (150-400) 10^3/uL Neut % (Auto) 67.5 (35-85) % Lymph % (Auto) 16.9 (10-55) % [place] % (Auto) 9.4 (0-16) % Eos % (Auto) 5.5 H (0-5) % Baso % (Auto) 0.7 (0-3) % Neut # (Auto) 5.60 (1.80-7.00) 10^3/uL Lymph # (Auto) 1.40 (1.00-4.80) 10^3/uL [place] # (Auto) 0.78 (0.00-0.80) 10^3/uL Eos # (Auto) 0.46 H (0.00-0.45) 10^3/uL Baso # (Auto) 0.06 10^3/uL Sodium 142 (136-145) mEq/L Potassium 3.9 (3.5-5.0) mEq/L Chloride 104 (98-106) mEq/L Carbon Dioxide 31 (21-32) mmol/L BUN 15 (7-18) mg/dL Creatinine 1.0 (0.7-1.3) mg/dL Est Cr Clr Drug Dosing 65.47 mL/min Estimated GFR (MDRD) > 60 (>=60) mL/min Glucose 157 H (75-99) mg/dL Lactic Acid (0.4-2.0) mmol/L Calcium 8.7 (8.4-10.1) mg/dL Total Bilirubin 0.7 (0.0-1.0) mg/dL AST 15 (15-37) U/L ALT 25 (12-78) U/L Alkaline Phosphatase 90 (46-116) U/L Creatine Kinase 73 (35-232) U/L Troponin I < 0.017 (0.00-0.06) ng/mL C-Reactive Protein 0.3 (0.2-0.8) mg/dL NT-Pro-B Natriuret Pep 165 (0-1000) pg/mL Total Protein 7.1 (6.4-8.2) g/dL Albumin 3.7 (3.4-5.0) g/dL COVID-19 (NANDINI) Negative (NEGATIVE) 01/07/20 Range/Units 06:35 WBC (5.0-10.0) 10^3/uL RBC (4.50-6.00) 10^6/uL Hgb (14.0-18.0) g/dL Hct (40.0-54.0) % MCV (82.0-94.0) fL MCH (27.0-32.0) pg MCHC (33.0-38.0) g/dL RDW Coeff of Laurie (11.0-15.0) % Plt Count (150-400) 10^3/uL Neut % (Auto) (35-85) % Lymph % (Auto) (10-55) % [place] % (Auto) (0-16) % Eos % (Auto) (0-5) % Baso % (Auto) (0-3) % Neut # (Auto) (1.80-7.00) 10^3/uL Lymph # (Auto) (1.00-4.80) 10^3/uL [place] # (Auto) (0.00-0.80) 10^3/uL Eos # (Auto) (0.00-0.45) 10^3/uL Baso # (Auto) 10^3/uL Sodium (136-145) mEq/L Potassium (3.5-5.0) mEq/L Chloride (98-106) mEq/L Carbon Dioxide (21-32) mmol/L BUN (7-18) mg/dL Creatinine (0.7-1.3) mg/dL Est Cr Clr Drug Dosing mL/min Estimated GFR (MDRD) (>=60) mL/min Glucose (75-99) mg/dL Lactic Acid 2.0 (0.4-2.0) mmol/L Calcium (8.4-10.1) mg/dL Total Bilirubin (0.0-1.0) mg/dL AST (15-37) U/L ALT (12-78) U/L Alkaline Phosphatase (46-116) U/L Creatine Kinase (35-232) U/L Troponin I (0.00-0.06) ng/mL C-Reactive Protein (0.2-0.8) mg/dL NT-Pro-B Natriuret Pep (0-1000) pg/mL Total Protein (6.4-8.2) g/dL Albumin (3.4-5.0) g/dL COVID-19 (NANDINI) (NEGATIVE) Departure - Departure Time of Disposition: 09:32 Disposition: Home, Self-Care 01 Clinical Impression: Shortness of breath at rest - Discharge Information Instructions: Shortness of Breath, Adult, [id number] Referrals: Trae Pereira MD [Primary Care Provider] - Forms: ED Department Discharge Additional Instructions: 1) Cardiac work up is negative today, Chest x-ray did not show any acute findings 2) May be secondary to COPD, encourage continuing to use inhaler as needed 3) Advise recheck with Dr. Pereira in clinic tomorrow 4) Return sooner if shortness of breath returns Sepsis Event Note (ED) - Evaluation Sepsis Screening Result: No Definite Risk - Focused Exam Vital Signs: Vital Signs Temp Pulse Resp BP Pulse Ox 01/07/20 08:14 62 20 122/65 94 L 01/07/20 07:24 60 19 111/71 95 01/07/20 07:00 97.6 F 66 18 117/64 93 L 01/07/20 06:17 97.4 F 66 18 141/75 H 93 L - Problem List & Annotations (1) COPD (chronic obstructive pulmonary disease) SNOMED Code(s): 19091535 Code(s): J44.9 - CHRONIC OBSTRUCTIVE PULMONARY DISEASE, UNSPECIFIED Status: Acute Current Visit: Yes Qualifiers: COPD type: emphysema Emphysema type: unspecified Qualified Code(s): J43.9 - Emphysema, unspecified (2) Shortness of breath at rest SNOMED Code(s): 983474857 Code(s): R06.02 - SHORTNESS OF BREATH Status: Acute Current Visit: Yes - My Orders Last 24 Hours: My Active Orders 01/07/20 06:20 Chest 2V [CR] Stat 01/07/20 08:13 Abdomen Ltd [US] Stat - Assessment/Plan Last 24 Hours: My Active Orders 01/07/20 06:20 Chest 2V [CR] Stat 01/07/20 08:13 Abdomen Ltd [US] Stat Plan: Meño has been asymptomatic in ED. cardiac work up was negative. Discussed findings with Meño and he feels safe going home. Will discharge home at this time. No changes to medications. Recheck with primary provider tomorrow in inic. Return sooner if any concerns.
[2020-01-07 08:15] VITALS: BP 122/65; PULSE 62
== END 2020-01-07 09:40 | disposition home or self-care (01) ==
LOC: CC.ED 05:55
DX: R06.02 Shortness of breath (principal); E78.00 Pure hypercholesterolemia, unspecified; I10 Essential (primary) hypertension; J44.9 Chronic obstructive pulmonary disease, unspecified; E11.42 Type 2 diabetes mellitus with diabetic polyneuropathy; F17.210 Nicotine dependence, cigarettes, uncomplicated; Z79.84 Long term (current) use of oral hypoglycemic drugs; Z79.899 Other long term (current) drug therapy; Z20.828 Contact with and (suspected) exposure to other viral communicable diseases
CPT/HCPCS: 36415; 71046; 76705; 80053; 82550; 83605; 83880; 84484; 85025; 86140; 93010; 99284; 99285-25; U0002

== ENCOUNTER → 2021-09-22 | Day surgery (SDC) | payer MEDICARE, OTHER ==
[~2021-09-22] MED LIST changes: -Lactated Ringers 1,000 ML ONE; +Lidocaine 1% with EPINEPHrine 1:100,000 20 ML MDV SUBCUT ONE; -Meperidine PF 25 MG/ML Syringe IV ONE; -Meperidine PF 25 MG/ML Syringe ONE; -Meperidine PF 50 MG/ML Syringe ONE; -Midazolam 1 MG/ML 2 ML SDV IV ONE; -Midazolam 1 MG/ML 2 ML SDV ONE
[2021-09-22 16:37] VITALS: BP 138/70; PULSE 59
== END ==
LOC: CC.SDS 12:09
PROVIDERS: ATTEND Surgery
DX: L73.9 Follicular disorder, unspecified (principal); N49.2 Inflammatory disorders of scrotum; J44.1 Chronic obstructive pulmonary disease with (acute) exacerbation; I10 Essential (primary) hypertension; E78.00 Pure hypercholesterolemia, unspecified; E11.9 Type 2 diabetes mellitus without complications; N42.82 Prostatosis syndrome; I48.91 Unspecified atrial fibrillation; F17.210 Nicotine dependence, cigarettes, uncomplicated; Z79.899 Other long term (current) drug therapy; Z79.84 Long term (current) use of oral hypoglycemic drugs; Z98.890 Other specified postprocedural states
CPT/HCPCS: 00920; 88305; J7120

== ENCOUNTER 2022-04-01 10:50 | Emergency (ER) | payer MEDICARE, OTHER ==
[2022-04-01 11:02] VITALS: BP 125/42; PULSE 80
== END 2022-04-01 12:20 | disposition home or self-care (01) ==
LOC: CC.ED 10:50
DX: R35.0 Frequency of micturition (principal); J44.9 Chronic obstructive pulmonary disease, unspecified; E78.00 Pure hypercholesterolemia, unspecified; I10 Essential (primary) hypertension; E11.42 Type 2 diabetes mellitus with diabetic polyneuropathy; Z95.0 Presence of cardiac pacemaker; Z79.84 Long term (current) use of oral hypoglycemic drugs
CPT/HCPCS: 81001; 99283

== ENCOUNTER → 2022-06-08 | Day surgery (SDC) | payer MEDICARE, OTHER ==
[~2022-06-08] MED LIST changes: +Ketamine 200 MG/20 ML MDV ONE; -Lactated Ringers 1,000 ML IV SCH; -Lidocaine 1% with EPINEPHrine 1:100,000 20 ML MDV SUBCUT ONE; +Propofol 200 MG/20 ML SDV ONE
[2022-06-08] MEDS: Lactated Ringers 1,000 ML ONE (11:44)
[2022-06-08] MEDS: ceFAZolin 2 GM Vial IVPUSH ONE (11:46)
[2022-06-08] MEDS: Lactated Ringers 1,000 ML IV SCH (11:46)
[2022-06-08] MEDS: Lidocaine 1% with EPINEPHrine 1:100,000 20 ML MDV INJECT ONE (12:49)
[2022-06-08 14:16] VITALS: BP 123/62; PULSE 64
== END ==
LOC: CC.SDS 11:34
PROVIDERS: ATTEND Surgery
DX: N50.9 Disorder of male genital organs, unspecified (principal); I10 Essential (primary) hypertension; E78.00 Pure hypercholesterolemia, unspecified; J44.1 Chronic obstructive pulmonary disease with (acute) exacerbation; E11.9 Type 2 diabetes mellitus without complications; I48.91 Unspecified atrial fibrillation; I48.92 Unspecified atrial flutter; F17.210 Nicotine dependence, cigarettes, uncomplicated; Z79.899 Other long term (current) drug therapy; Z79.84 Long term (current) use of oral hypoglycemic drugs; Z98.890 Other specified postprocedural states
CPT/HCPCS: 88305; J0690; J2704; J3490; J7120

== ENCOUNTER 2024-03-06 12:12 | Inpatient (IN) | payer MEDICARE, OTHER ==
[2024-03-06] MEDS ORDERED: Acetaminophen 325 MG Tab PO PRN (16:10)
[2024-03-06] MEDS ORDERED: Ondansetron 4 MG Tab.DIS PO PRN (16:10)
[2024-03-06] MEDS ORDERED: Polyethylene Glycol 3350 Powder 17 GM Packet PO PRN (16:10)
[2024-03-06] MEDS ORDERED: Fluticasone NASAL Spray 16 GM Bottle NASBOTH PRN (16:22)
[2024-03-06] MEDS ORDERED: Albuterol 6.7 GM Inhaler INH PRN (16:22)
[2024-03-06 16:36] LABS: BASOPHILS ABSOLUTE AUTO 0.05 10^3/uL (0.00-0.50); BASOPHILS PERCENT AUTO 0.4 % (0-1); EOSINOPHILS ABSOLUTE AUTO 0.13 10^3/uL (0.00-1.50); EOSINOPHILS PERCENT AUTO 1.1 % (0-6); HEMATOCRIT 38.9 % (42.0-52.0); HEMOGLOBIN 12.5 g/dL (14.0-18.0); IMMATURE GRAN ABSOLUTE AUTO 0.06 10^3/uL (0.00-0.49); IMMATURE GRAN PERCENT AUTO 0.5 % (0.0-4.9); LYMPHOCYTES ABSOLUTE AUTO 0.78 10^3/uL (0.60-5.00); LYMPHOCYTES PERCENT AUTO 6.8 % (24-44); MEAN CORPUSCULAR HEMOGLOBIN 29.6 pg (27.0-32.0); MEAN CORPUSCULAR HGB CONC 32.1 g/dL (32.0-36.0); MONOCYTES ABSOLUTE AUTO 1.12 10^3/uL (0.00-1.50); MONOCYTES PERCENT AUTO 9.7 % (0-10); NEUTROPHILS ABSOLUTE AUTO 9.37 x10^3/uL (1.80-8.00); NEUTROPHILS PERCENT AUTO 81.5 % (41-71); PLATELET COUNT,PLT 318 10^3/uL (150-400); RED BLOOD CELL COUNT 4.23 x10^6/uL (4.50-6.00); WHITE BLOOD CELL COUNT,WBC 11.5 10^3/uL (4.0-11.0)
[2024-03-06 16:53] LABS: ALANINE AMINOTRANSFERASE,ALT 16 U/L (12-78); ALKALINE PHOSPHATASE 104 U/L (46-116); ASPARTATE AMNIOTRANSFERASE,AST 26 U/L (15-37); BILIRUBIN TOTAL 0.4 mg/dL (0.0-1.0); BLOOD UREA NITROGEN,BUN 16 mg/dL (7-18); CALCIUM 9.3 mg/dL (8.4-10.1); CARBON DIOXIDE,CO2 34 mmol/L (21-32); CHLORIDE,CL 102 mEq/L (98-106); CREATININE 0.8 mg/dL (0.7-1.3); EST CRCL DRUG DOSING (CG) 77.06 mL/min; GLUCOSE RANDOM 121 mg/dL (75-99); MAGNESIUM 1.8 mg/dL (1.8-2.4); PROTEIN TOTAL,TP 6.3 g/dL (6.4-8.2); SODIUM,NA 141 mEq/L (136-145)
[2024-03-06 16:54] LABS: C-REACTIVE PROTEIN < 0.50 mg/dL (<=0.50); ESTIMATED GFR 86 mL/min (>=60)
[2024-03-06] MEDS: cefTAZidime 1 GM Vial IVPUSH SCH (16:59)
[2024-03-06] MEDS: LACTASE 9000 UNIT PO SCH (17:40)
[2024-03-06] MEDS: Doxazosin 2 MG Tab PO SCH (19:34)
[2024-03-06] MEDS: Furosemide 40 MG Tab PO SCH (19:35)
[2024-03-06] MEDS: DABIGATRAN 150 MG PO SCH (19:35)
[2024-03-06] MEDS: Metoprolol Succinate 100 MG Tab.ER PO SCH (19:36)
[2024-03-06] MEDS: Acetaminophen 500 MG Tab PO SCH (19:36)
[2024-03-07 07:29] LABS: BASOPHILS ABSOLUTE AUTO 0.04 10^3/uL (0.00-0.50); BASOPHILS PERCENT AUTO 0.4 % (0-1); EOSINOPHILS ABSOLUTE AUTO 0.17 10^3/uL (0.00-1.50); EOSINOPHILS PERCENT AUTO 1.7 % (0-6); HEMATOCRIT 39.1 % (42.0-52.0); HEMOGLOBIN 12.5 g/dL (14.0-18.0); IMMATURE GRAN ABSOLUTE AUTO 0.06 10^3/uL (0.00-0.49); IMMATURE GRAN PERCENT AUTO 0.6 % (0.0-4.9); MEAN CORPUSCULAR HEMOGLOBIN 29.3 pg (27.0-32.0); MEAN CORPUSCULAR VOLUME 91.6 fL (83.0-97.0); MONOCYTES ABSOLUTE AUTO 0.95 10^3/uL (0.00-1.50); MONOCYTES PERCENT AUTO 9.5 % (0-10); NEUTROPHILS ABSOLUTE AUTO 7.94 x10^3/uL (1.80-8.00); NEUTROPHILS PERCENT AUTO 79.8 % (41-71); PLATELET COUNT,PLT 304 10^3/uL (150-400); RED BLOOD CELL COUNT 4.27 x10^6/uL (4.50-6.00)
[2024-03-07] MEDS: Loratadine 10 MG Tab PO SCH (07:36)
[2024-03-07] MEDS: Lactobacillus Rhamnosus GG (Probiotic) Cap PO SCH (07:36)
[2024-03-07] MEDS: Potassium Chloride 10 MEQ Tab.ER PO SCH (07:38)
[2024-03-07] MEDS: Beta-Carotene (Vitamin A) w/Vitamin C & E plus Minerals Tab PO SCH (07:38)
[2024-03-07] MEDS: Cholecalciferol (Vitamin D3) 5,000 UNIT Tab PO SCH (07:40)
[2024-03-07 08:10] LABS: CALCIUM 9.1 mg/dL (8.4-10.1); CREATININE 0.7 mg/dL (0.7-1.3); EST CRCL DRUG DOSING (CG) 88.07 mL/min; MAGNESIUM 1.8 mg/dL (1.8-2.4); POTASSIUM,K 3.6 mEq/L (3.5-5.0)
[2024-03-07] MEDS: Docusate Sodium 100 MG Cap PO PRN (09:20)
[2024-03-07] MEDS: Pravastatin 20 MG Tab PO SCH (19:29)
[2024-03-08 08:18] LABS: BASOPHILS ABSOLUTE AUTO 0.03 10^3/uL (0.00-0.50); BASOPHILS PERCENT AUTO 0.3 % (0-1); EOSINOPHILS ABSOLUTE AUTO 0.12 10^3/uL (0.00-1.50); EOSINOPHILS PERCENT AUTO 1.3 % (0-6); HEMATOCRIT 40.9 % (42.0-52.0); HEMOGLOBIN 13.1 g/dL (14.0-18.0); IMMATURE GRAN ABSOLUTE AUTO 0.04 10^3/uL (0.00-0.49); IMMATURE GRAN PERCENT AUTO 0.4 % (0.0-4.9); LYMPHOCYTES ABSOLUTE AUTO 0.62 10^3/uL (0.60-5.00); LYMPHOCYTES PERCENT AUTO 6.5 % (24-44); MEAN CORPUSCULAR HEMOGLOBIN 29.6 pg (27.0-32.0); MEAN CORPUSCULAR VOLUME 92.5 fL (83.0-97.0); MONOCYTES ABSOLUTE AUTO 0.73 10^3/uL (0.00-1.50); MONOCYTES PERCENT AUTO 7.6 % (0-10); NEUTROPHILS ABSOLUTE AUTO 8.06 x10^3/uL (1.80-8.00); NEUTROPHILS PERCENT AUTO 83.9 % (41-71); PLATELET COUNT,PLT 312 10^3/uL (150-400); RED BLOOD CELL COUNT 4.42 x10^6/uL (4.50-6.00); WHITE BLOOD CELL COUNT,WBC 9.6 10^3/uL (4.0-11.0)
[2024-03-08 08:20] LABS: CALCIUM 9.3 mg/dL (8.4-10.1); CREATININE 0.7 mg/dL (0.7-1.3); EST CRCL DRUG DOSING (CG) 88.07 mL/min; MAGNESIUM 1.9 mg/dL (1.8-2.4); POTASSIUM,K 3.8 mEq/L (3.5-5.0)
[2024-03-09 07:27] VITALS: BP 122/71; PULSE 63
[2024-03-09 08:07] LABS: BASOPHILS ABSOLUTE AUTO 0.03 10^3/uL (0.00-0.50); BASOPHILS PERCENT AUTO 0.3 % (0-1); EOSINOPHILS ABSOLUTE AUTO 0.15 10^3/uL (0.00-1.50); EOSINOPHILS PERCENT AUTO 1.3 % (0-6); HEMATOCRIT 38.6 % (42.0-52.0); HEMOGLOBIN 12.6 g/dL (14.0-18.0); IMMATURE GRAN ABSOLUTE AUTO 0.06 10^3/uL (0.00-0.49); IMMATURE GRAN PERCENT AUTO 0.5 % (0.0-4.9); LYMPHOCYTES ABSOLUTE AUTO 0.69 10^3/uL (0.60-5.00); LYMPHOCYTES PERCENT AUTO 6.1 % (24-44); MEAN CORPUSCULAR HGB CONC 32.6 g/dL (32.0-36.0); MEAN CORPUSCULAR VOLUME 91.9 fL (83.0-97.0); MONOCYTES ABSOLUTE AUTO 0.94 10^3/uL (0.00-1.50); MONOCYTES PERCENT AUTO 8.4 % (0-10); NEUTROPHILS ABSOLUTE AUTO 9.35 x10^3/uL (1.80-8.00); NEUTROPHILS PERCENT AUTO 83.4 % (41-71); PLATELET COUNT,PLT 284 10^3/uL (150-400); WHITE BLOOD CELL COUNT,WBC 11.2 10^3/uL (4.0-11.0)
[2024-03-09 08:14] LABS: CALCIUM 8.7 mg/dL (8.4-10.1); CREATININE 0.8 mg/dL (0.7-1.3); EST CRCL DRUG DOSING (CG) 77.06 mL/min; MAGNESIUM 1.9 mg/dL (1.8-2.4); POTASSIUM,K 3.7 mEq/L (3.5-5.0)
== END 2024-03-09 12:19 | disposition swing bed (61) | DRG 690 ==
LOC: CC.MS 15:40 → UNDOADMIN 15:40 → CC.MS 16:10
PROVIDERS: ADMIT Nurse Practitioner; ATTEND Nurse Practitioner
DX: N39.0 Urinary tract infection, site not specified (principal); Z16.23 Resistance to quinolones and fluoroquinolones; E78.00 Pure hypercholesterolemia, unspecified; E11.42 Type 2 diabetes mellitus with diabetic polyneuropathy; H91.90 Unspecified hearing loss, unspecified ear; J44.9 Chronic obstructive pulmonary disease, unspecified; B96.5 Pseudomonas (aeruginosa) (mallei) (pseudomallei) as the cause of diseases classified elsewhere; Z95.0 Presence of cardiac pacemaker; Z98.49 Cataract extraction status, unspecified eye; Z96.659 Presence of unspecified artificial knee joint; Z96.649 Presence of unspecified artificial hip joint; Z79.899 Other long term (current) drug therapy
CPT/HCPCS: 36415; 80048; 80053; 83605; 83735; 85025; 86140; 87040; 97161-GP; 99223; 99232; 99233; 99238; A9270-GY; J0713

== ENCOUNTER 2024-03-27 10:42 | Emergency (ER) | payer MEDICARE, OTHER ==
[2024-03-27 11:39] LABS: BASOPHILS ABSOLUTE AUTO 0.03 10^3/uL (0.00-0.50); BASOPHILS PERCENT AUTO 0.3 % (0-1); EOSINOPHILS PERCENT AUTO 0.9 % (0-6); HEMATOCRIT 37.8 % (42.0-52.0); IMMATURE GRAN ABSOLUTE AUTO 0.06 10^3/uL (0.00-0.49); IMMATURE GRAN PERCENT AUTO 0.5 % (0.0-4.9); LYMPHOCYTES ABSOLUTE AUTO 0.45 10^3/uL (0.60-5.00); LYMPHOCYTES PERCENT AUTO 3.9 % (24-44); MEAN CORPUSCULAR HEMOGLOBIN 29.5 pg (27.0-32.0); MEAN CORPUSCULAR HGB CONC 31.7 g/dL (32.0-36.0); MEAN CORPUSCULAR VOLUME 92.9 fL (83.0-97.0); MONOCYTES ABSOLUTE AUTO 1.03 10^3/uL (0.00-1.50); MONOCYTES PERCENT AUTO 8.9 % (0-10); NEUTROPHILS ABSOLUTE AUTO 9.94 x10^3/uL (1.80-8.00); NEUTROPHILS PERCENT AUTO 85.5 % (41-71); PLATELET COUNT,PLT 339 10^3/uL (150-400); RED BLOOD CELL COUNT 4.07 x10^6/uL (4.50-6.00); WHITE BLOOD CELL COUNT,WBC 11.6 10^3/uL (4.0-11.0)
[2024-03-27 11:49] LABS: ALANINE AMINOTRANSFERASE,ALT 17 U/L (12-78); ALBUMIN 2.9 g/dL (3.4-5.0); ALKALINE PHOSPHATASE 123 U/L (46-116); ASPARTATE AMNIOTRANSFERASE,AST 34 U/L (15-37); BILIRUBIN TOTAL 0.5 mg/dL (0.0-1.0); BLOOD UREA NITROGEN,BUN 23 mg/dL (7-18); CARBON DIOXIDE,CO2 30 mmol/L (21-32); CHLORIDE,CL 101 mEq/L (98-106); CREATININE 1.1 mg/dL (0.7-1.3); GLUCOSE RANDOM 106 mg/dL (75-99); MAGNESIUM 2.2 mg/dL (1.8-2.4); POTASSIUM,K 4.7 mEq/L (3.5-5.0); PROTEIN TOTAL,TP 6.6 g/dL (6.4-8.2); SODIUM,NA 139 mEq/L (136-145)
[2024-03-27 12:03] LABS: ESTIMATED GFR 65 mL/min (>=60)
[2024-03-27] MEDS: Iopamidol 755 Mg/ML 100 ML Bottle IVPUSH ONE (12:38)
[2024-03-27] MEDS: Pantoprazole 40 MG Vial IVPUSH ONE (13:44)
[2024-03-27] MEDS: Piperacillin/Tazobactam 4.5 GM in Sodium Chloride 0.9% 100 ML IV ONE (13:51)
[2024-03-27] MEDS: Lactated Ringers 1,000 ML IV STA (14:22)
[2024-03-27 15:15] VITALS: BP 101/56; PULSE 71
== END 2024-03-27 16:59 ==
LOC: CC.ED 10:42
DX: K26.5 Chronic or unspecified duodenal ulcer with perforation (principal); I10 Essential (primary) hypertension; E78.00 Pure hypercholesterolemia, unspecified; J44.9 Chronic obstructive pulmonary disease, unspecified; E11.40 Type 2 diabetes mellitus with diabetic neuropathy, unspecified; Z95.0 Presence of cardiac pacemaker; Z79.899 Other long term (current) drug therapy; Z79.1 Long term (current) use of non-steroidal anti-inflammatories (NSAID)
CPT/HCPCS: 36415; 74177; 80053; 83605; 83735; 85025; 87040; 96361; 96365; 96375; 99285-25; J2470; J2543; J3490; J7120; Q9967